=== PATIENT | female | born 1970 | race Caucasian/White ===

== ENCOUNTER 2017-11-26 20:59 | Emergency (ER) | payer MEDICARE, MEDICAID ==
[~2017-11-26] VITALS: Ht 170.2 cm; Wt 60.0 kg
[~2017-11-26 20:59] MED LIST: ARIP1TAB12 PO; ARIP400P IM; GEOD80CA PO; HYDR50TA5 PO; LAMO100 PO; LEXA20TA PO; LORA-392 PO; TRAZ100T4 PO; VIST25CA PO
[2017-11-26] MEDS ORDERED: SODIUM CHLORIDE 0.9% FLUSH 10 ML FLUSH IVF PRN (21:30)
[2017-11-26] MEDS ORDERED: LORazepam 2 MG/ML VIAL IV PUSH ONE ×2 (21:30→21:45)
[2017-11-26 21:51] VITALS: BP 116/85; PULSE 115; RESP 20; TEMP 98.6; O2SAT 97
[2017-11-26 21:57] VITALS: BP 134/66; PULSE 106; RESP 20; O2SAT 96
[2017-11-26 22:09] LABS: BASOPHIL # 0.1 TH/MM3 (0-0.2); BASOPHIL % 0.6 % (0.0-2.0); EOSINOPHIL # 0.1 TH/MM3 (0-0.4); EOSINOPHIL % 0.8 % (0.0-4.0); HEMATOCRIT 40.5 % (35.0-46.0); HEMOGLOBIN 13.6 GM/DL (11.6-15.3); LYMPH % 20.6 % (9.0-44.0); LYMPHOCYTE # 2.4 TH/MM3 (1.0-4.8); MEAN CELL VOLUME 90.8 FL (80.0-100.0); MEAN CORPUSCULAR HEMOGLOBIN 30.6 PG (27.0-34.0); MEAN CORPUSCULAR HGB CONC 33.7 % (32.0-36.0); MEAN PLATELET VOLUME 7.7 FL (7.0-11.0); MONO % 10.5 % (0.0-8.0); MONOCYTE # 1.2 TH/MM3 (0-0.9); NEUT % 67.5 % (16.0-70.0); PLATELET COUNT 365 TH/MM3 (150-450); RED BLOOD COUNT 4.46 MIL/MM3 (4.00-5.30); RED CELL DISTRIBUTION WIDTH 14.1 % (11.6-17.2); WHITE BLOOD COUNT 11.8 TH/MM3 (4.0-11.0)
--- NOTE | 2017-11-26 22:25 | PD ---
HPI Chief Complaint: Alcohol/Drug Intoxication Time Seen by Provider: 21:16 Travel History International Travel<30 days: No Contact w/Intl Traveler<30days: No Traveled to known affect area: No History of Present Illness HPI 47-year-old female history of methamphetamine use, presents here intoxicated and agitated. The patient states that she fell off the wagon a few weeks ago. She states she was clean for almost a year and 8 months. She states that she's been having acute life stressors that made her start using again. She reports smoking the meth. She states that 2-3 days ago she shot it up. He denies any chest pain, chest pressure. She states that she feels agitated and cannot sit still. There are no other complaints time my examination. PFSH Past Medical History Arthritis: Yes (HX OF OSTEOARTHRITIS) Autoimmune Disease: No Bipolar Disorder: Yes Anxiety: Yes Depression: Yes (WILL NOT DISCUSS) Cancer: No Cardiovascular Problems: No Diabetes: No Diminished Hearing: No Endocrine: No Fibromyalgia: Yes Genitourinary: No Immune Disorder: No Implanted Vascular Access Dvce: Yes Musculoskeletal: No Neurologic: No Psychiatric: Yes (WILL NOT DISCUSS) Reproductive: No Respiratory: No Schizophrenia: Yes Seizures: Yes Thyroid Disease: No Tetanus Vaccination: > 5 Years Influenza Vaccination: No ?: Not LMP: 2002 : 3 Para: 2 : 1 Past Surgical History Abdominal Surgery: No Cardiac Surgery: No Ear Surgery: No Endocrine Surgery: No Eye Surgery: No Genitourinary Surgery: No Gynecologic Surgery: Yes Hysterectomy: Yes (2002) Oral Surgery: No Thoracic Surgery: No Other Surgery: Yes (lumpectomy 2003) Social History Alcohol Use: Yes (rare) Tobacco Use: Yes (one pk per day) Substance Use: Yes (meth cocaine) Allergies-Medications (Allergen,Severity, Reaction): Coded Allergies: guaifenesin (Unverified Allergy, Severe, Anaphylaxis, 11/26/17) penicillin G (Unverified Allergy, Severe, Anaphylaxis, 11/26/17) Reported Meds & Prescriptions Reported Meds & Active Scripts Active Reported Vistaril (Hydroxyzine Pamoate) 25 Mg Cap 25 Mg PO QID Paxil (Paroxetine HCl) 30 Mg Tab 40 Mg PO DAILY Review of Systems Except as stated in HPI: all other systems reviewed are Neg General / Constitutional: No: Fever, Chills HENT: No: Headaches, Lightheadedness Cardiovascular: Positive: Palpitations, No: Chest Pain or Discomfort Respiratory: No: Cough, Shortness of Breath Gastrointestinal: No: Nausea, Vomiting, Abdominal Pain Genitourinary: No: Dysuria, Incontinence Musculoskeletal: No: Weakness, Pain Neurologic: Positive: Other (agitated), No: Weakness, Dizziness, Headache Psychiatric: Positive: Anxiety, Substance Abuse (anxious) Physical Exam Narrative GENERAL: Developed well-nourished female in no acute respiratory distress. The patient does appear to be agitated and fidgety. SKIN: Focused skin assessment warm/dry. HEAD: Atraumatic. Normocephalic. EYES: Pupils equal and dilated. No scleral icterus. No injection or drainage. ENT: No nasal bleeding or discharge. Mucous membranes pink and moist. NECK: Trachea midline. Supple. CARDIOVASCULAR: Sinus tach in the low 100s. It was 108 at the time of my examination. No murmur appreciated. RESPIRATORY: No accessory muscle use. Clear to auscultation. Breath sounds equal bilaterally. GASTROINTESTINAL: Abdomen soft, non-tender, nondistended. MUSCULOSKELETAL: No obvious deformities. No clubbing. No cyanosis. No edema. NEUROLOGICAL: Awake and alert. Patient appears under the influence of amphetamines. She is fidgety and agitated and cannot sit still. No obvious cranial nerve deficits. Motor grossly within normal limits. Normal speech. Data Data Last Documented VS Vital Signs Date Time Temp Pulse Resp B/P (MAP) Pulse Ox O2 Delivery O2 Flow Rate FiO2 11/26/17 23:39 103 20 148/74 (98) 99 Room Air 11/26/17 21:51 98.6 Orders Orders Basic Metabolic Panel (Bmp) (11/26/17 21:17) Complete Blood Count With Diff (11/26/17 21:17) Ua Includes Microscopic (11/26/17 21:17) Iv Access Insert/Monitor (11/26/17 21:17) Ecg Monitoring (11/26/17 21:17) Oximetry (11/26/17 21:17) Lorazepam Inj (Ativan Inj) (11/26/17 21:30) Sodium Chloride 0.9% Flush (Ns Flush) (11/26/17 21:30) Drug Screen, Random Urine (11/26/17 21:17) Alcohol (Ethanol) (11/26/17 21:17) Lorazepam Inj (Ativan Inj) (11/26/17 21:45) Potassium Chloride (Kcl) (11/27/17 00:00) Sodium Chlor 0.9% 1000 Ml Inj (Ns 1000 M (11/27/17 02:15) Labs Laboratory Tests Test 11/26/17 21:25 White Blood Count 11.8 TH/MM3 Red Blood Count 4.46 MIL/MM3 Hemoglobin 13.6 GM/DL Hematocrit 40.5 % Mean Corpuscular Volume 90.8 FL Mean Corpuscular Hemoglobin 30.6 PG Mean Corpuscular Hemoglobin Concent 33.7 % Red Cell Distribution Width 14.1 % Platelet Count 365 TH/MM3 Mean Platelet Volume 7.7 FL Neutrophils (%) (Auto) 67.5 % Lymphocytes (%) (Auto) 20.6 % Monocytes (%) (Auto) 10.5 % Eosinophils (%) (Auto) 0.8 % Basophils (%) (Auto) 0.6 % Neutrophils # (Auto) 8.0 TH/MM3 Lymphocytes # (Auto) 2.4 TH/MM3 Monocytes # (Auto) 1.2 TH/MM3 Eosinophils # (Auto) 0.1 TH/MM3 Basophils # (Auto) 0.1 TH/MM3 CBC Comment DIFF FINAL Differential Comment Blood Urea Nitrogen 16 MG/DL Creatinine 1.24 MG/DL Random Glucose 90 MG/DL Calcium Level 8.8 MG/DL Sodium Level 138 MEQ/L Potassium Level 3.4 MEQ/L Chloride Level 104 MEQ/L Carbon Dioxide Level 22.3 MEQ/L Anion Gap 12 MEQ/L Estimat Glomerular Filtration Rate 47 ML/MIN Ethyl Alcohol Level LESS THAN 3 MG/DL MDM Medical Decision Making Medical Screen Exam Complete: Yes Emergency Medical Condition: Yes Differential Diagnosis Polysubstance abuse versus metabolic derangement versus behavioral disorder Narrative Course 47-year-old with a history of polysubstance abuse, presents today after stating that she was using meth amphetamines. Patient states her last 2 days she smoked meth amphetamines. Patient denies any head pain and neck pain. Patient states that she's anxious and jittery. Labs show a slightly low potassium level. She's been given potassium replacement by mouth. She's also appears to have mild dehydration. She was given 1 L of IV fluids. She's been observed here and will be observed until she is awake and not anxious. Diagnosis Primary Impression: Polysubstance abuse Additional Impression: Schizoaffective disorder Disposition: 01 DISCHARGE HOME Condition: Stable Thom Adrian MD Nov 26, 2017 22:25
[2017-11-26 22:26] LABS: BICARBONATE 22.3 MEQ/L (21.0-32.0); BLOOD UREA NITROGEN 16 MG/DL (7-18); CALCIUM 8.8 MG/DL (8.5-10.1); CHLORIDE 104 MEQ/L (98-107); CREATININE 1.24 MG/DL (0.50-1.00); GLOMERULAR FILTRATION RATE 47 ML/MIN (>89); GLUCOSE,RANDOM 90 MG/DL (74-106); SODIUM (NA) 138 MEQ/L (136-145)
[2017-11-26 23:39] VITALS: BP 148/74; PULSE 103; RESP 20; O2SAT 99
[2017-11-27] MEDS ORDERED: POTASSIUM CHLORIDE 20 MEQ CONTROLLED RELEASE TAB PO ONE
[2017-11-27] MEDS ORDERED: VIST25CA PO (00:36)
[2017-11-27] MEDS ORDERED: PAXI30TA7 PO (00:36)
[2017-11-27] MEDS ORDERED: SODIUM CHLOR 0.9% 1000 ML INJ 1,000 ML IV ONE (02:15)
[2017-11-27 06:52] VITALS: BP 126/74; PULSE 94; RESP 20; O2SAT 100
== END 2017-11-27 11:52 | disposition home or self-care (01) ==
LOC: NEPE 20:59 → NEDAMB 11-27 11:52
DX: F19.10 Other psychoactive substance abuse, uncomplicated (principal); F25.9 Schizoaffective disorder, unspecified; F31.9 Bipolar disorder, unspecified; F41.9 Anxiety disorder, unspecified; M19.90 Unspecified osteoarthritis, unspecified site; M79.7 Fibromyalgia
CPT/HCPCS: 80048; 80307; 85025; 96374; 96375; 99283; J2060; J7030

== ENCOUNTER 2018-06-13 09:28 | Observation (INO) ==
[2018-06-13] MEDS ORDERED: Aspirin 325 MG Tablet PO ONE (09:48)
--- NOTE | 2018-06-13 09:52 | ED ---
HPI General Chief Complaint: Chest Pain Stated Complaint: chest pain/sob Time Seen by Provider: 06/13/18 09:41 History of Present Illness HPI narrative: Patient presents to the emergency department complaining of shortness of breath and heart pain. States she had the same symptoms about a month ago. 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 Pain is described as being left-sided, constant, initially eased but comes back, 8 out of 10, radiates to the right side, no alleviating or aggravating factors. She denies fever, sweating, nausea, vomiting, recent travel, cough, but reports shortness of breath with the pain.Patient presents to the emergency department secondary to falling this morning. States that she got up and went to the kitchen to eat breakfast pulled a chair out and try to sit down and fell because the chair slid out from underneath her. States that she did hit her head but denies loss of consciousness. He also denies being on any type of blood thinners. Denies pain now but states that she fell on her right side. She denies chest pain, abdominal pain, headache, but reports difficulty breathing with the chest pain. Complete Quality Measures for STEMI Alert Patients Related Data Allergies Allergy/AdvReac Type Severity Reaction Status Date / Time guaifenesin Allergy Severe Anaphylaxis Unverified 05/21/18 05:31 penicillin G Allergy Severe Anaphylaxis Unverified 05/21/18 05:31 Review of Systems ROS Unobtainable All other systems reviewed negative except as stated in HPI [facility] Social History Social History Recent Travel in [facility] within the Last 8 Weeks: No Recent Out of Country Travel within the Last 8 Weeks: No Exam Narrative Exam Narrative: GENERAL: No acute distress SKIN: Focused skin assessment warm/dry. HEAD: Atraumatic. Normocephalic. EYES: Pupils equal and round. No scleral icterus. No injection or drainage. ENT: No nasal bleeding or discharge. Mucous membranes pink and moist. NECK: Trachea midline. No JVD. CARDIOVASCULAR: Regular rate and rhythm. No murmur appreciated. RESPIRATORY: No accessory muscle use. Clear to auscultation. Breath sounds equal bilaterally. GASTROINTESTINAL: Abdomen soft, non-tender, nondistended. Hepatic and splenic margins not palpable. MUSCULOSKELETAL: No obvious deformities. No clubbing. No cyanosis. No edema. NEUROLOGICAL: Awake and alert. No obvious cranial nerve deficits. Motor grossly within normal limits. Normal speech. PSYCHIATRIC: Appropriate mood and affect; insight and judgment normal. Course Initial Documented Vital Signs Temperature 98.4 F 06/13/18 09:31 Pulse Rate 66 06/13/18 09:31 Respiratory Rate 20 06/13/18 09:31 Blood Pressure 137/81 06/13/18 09:31 Pulse Oximetry 99 06/13/18 09:31 Last Documented Vital Signs Temperature 98.4 F 06/13/18 09:31 Pulse Rate 66 06/13/18 09:31 Respiratory Rate 20 06/13/18 09:31 Blood Pressure 137/81 06/13/18 09:31 Pulse Oximetry 99 06/13/18 09:31 Medical Decision Making MDM Narrative Medical decision making narrative: Patient presents to the emergency department complaining of chest pain shortness of breath. Patient placed on a bus driver/monitor, continuous pulse ox, and IV access obtained. Labs, EKG, chest x-ray, aspirin 325 mg p.o., and 1, 0.4 mg sublingual nitroglycerin ordered. CXR: CONCLUSION: No acute cardiopulmonary disease. CBC and coags and d-dimer within normal limits.Troponin negative. Patient will be sent to chest pain center for further evaluation and management. Patient given 2mg IV morphine for pain. Differential Diagnosis Differential Diagnosis: ACS, fibromyalgia, costochondritis, PE Lab Data Result diagrams: 06/13/18 10:13 06/13/18 10:13 Lab Results 06/13/18 06/13/18 06/13/18 Range/Units 10:13 10:13 10:13 WBC 7.3 (4.0-11.0) th/mm3 RBC 3.83 L (4.00-5.30) mil/mm3 Hgb 12.7 (11.6-15.3) gm/dL Hct 36.0 (35.0-46.0) % MCV 93.8 (80.0-100.0) fL MCH 33.2 (27.0-34.0) pg MCHC 35.4 (32.0-36.0) % RDW 14.2 (11.6-17.2) % Plt Count 288 (150-450) th/mm3 MPV 8.1 (7.0-11.0) fL Neut % (Auto) 55.2 (16.0-70.0) % Lymph % (Auto) 31.7 (9.0-44.0) % Hardin % (Auto) 9.0 H (0.0-8.0) % Eos % (Auto) 3.4 (0.0-4.0) % Baso % (Auto) 0.7 (0.0-2.0) % Neut # (Auto) 4.0 (1.8-7.7) th/mm3 Lymph # (Auto) 2.3 (1.0-4.8) th/mm3 Hardin # (Auto) 0.7 (0.0-0.9) th/mm3 Eos # (Auto) 0.2 (0.0-0.4) th/mm3 Baso # (Auto) 0.1 (0.0-0.2) th/mm3 WBC Differential . Differential Comment Auto diff final PT 10.1 (9.8-11.6) sec INR 1.0 Ratio APTT 25.9 (24.3-30.1) sec D-Dimer Quant (PE/DVT) 0.26 (0.00-0.50) mg/L FEU Sodium 140 (136-145) meq/L Potassium 4.2 (3.5-5.1) meq/L Chloride 105 (98-107) meq/L Carbon Dioxide 28.7 (21.0-32.0) meq/L Anion Gap 6 (5-15) meq/L BUN 16 (7-18) mg/dL Creatinine 0.82 (0.50-1.00) mg/dL Estimated GFR 75 L (>89) mL/min Random Glucose 83 (74-106) mg/dL Calcium 8.7 (8.5-10.1) mg/dL Magnesium 2.0 (1.5-2.5) mg/dL Total Bilirubin 0.2 (0.2-1.0) mg/dL AST 10 L (15-37) U/L ALT 16 (10-53) U/L Alkaline Phosphatase 47 (45-117) U/L Total Creatine Kinase 91 (26-192) U/L Troponin I Less than 0.02 L (0.02-0.05) ng/mL B-Natriuretic Peptide (0-100) pg/mL Total Protein 6.4 (6.4-8.2) g/dL Albumin 3.2 L (3.4-5.0) g/dL 06/13/18 Range/Units 10:13 WBC (4.0-11.0) th/mm3 RBC (4.00-5.30) mil/mm3 Hgb (11.6-15.3) gm/dL Hct (35.0-46.0) % MCV (80.0-100.0) fL MCH (27.0-34.0) pg MCHC (32.0-36.0) % RDW (11.6-17.2) % Plt Count (150-450) th/mm3 MPV (7.0-11.0) fL Neut % (Auto) (16.0-70.0) % Lymph % (Auto) (9.0-44.0) % Hardin % (Auto) (0.0-8.0) % Eos % (Auto) (0.0-4.0) % Baso % (Auto) (0.0-2.0) % Neut # (Auto) (1.8-7.7) th/mm3 Lymph # (Auto) (1.0-4.8) th/mm3 Hardin # (Auto) (0.0-0.9) th/mm3 Eos # (Auto) (0.0-0.4) th/mm3 Baso # (Auto) (0.0-0.2) th/mm3 WBC Differential Differential Comment PT (9.8-11.6) sec INR Ratio APTT (24.3-30.1) sec D-Dimer Quant (PE/DVT) (0.00-0.50) mg/L FEU Sodium (136-145) meq/L Potassium (3.5-5.1) meq/L Chloride (98-107) meq/L Carbon Dioxide (21.0-32.0) meq/L Anion Gap (5-15) meq/L BUN (7-18) mg/dL Creatinine (0.50-1.00) mg/dL Estimated GFR (>89) mL/min Random Glucose (74-106) mg/dL Calcium (8.5-10.1) mg/dL Magnesium (1.5-2.5) mg/dL Total Bilirubin (0.2-1.0) mg/dL AST (15-37) U/L ALT (10-53) U/L Alkaline Phosphatase (45-117) U/L Total Creatine Kinase (26-192) U/L Troponin I (0.02-0.05) ng/mL B-Natriuretic Peptide 27 (0-100) pg/mL Total Protein (6.4-8.2) g/dL Albumin (3.4-5.0) g/dL Imaging Data Radiologist's impression: Chest X-Ray 06/13/18 09:48 CONCLUSION: No acute cardiopulmonary disease ECG Data Attestation: I personally reviewed and interpreted this ECG as follows: Discharge Plan Discharge Disposition Patient Disposition: 30 Still Patient Discharge Condition Condition: Stable Discharge Details Diagnosis: Chest pain Physicians Team ED Provider: Olga Lua Primary Care Provider: Gabby Issa Attending Provider: Chintan Nuñez ED Status: Admitted Observation Patient
--- NOTE | 2018-06-13 10:19 | XR ---
EXAM DATE: 06/13/2018 10:06 AM EDT AGE/SEX: 48 years / Female INDICATIONS: Chest pain. CLINICAL DATA: This is the patient's initial encounter. Patient reports that signs and symptoms have been present for 1 day and indicates a pain score of 3/10. MEDICAL/SURGICAL HISTORY: None. Patient is a smoker, one pack per day. No prior surgery. Was h ere last month for same chest pain and SOB None. COMPARISON: No prior exams available for comparison. FINDINGS: A single AP view of the chest demonstrates the lungs to be symmetrically aerated without evidence of mass, infiltrate or effusion. The cardiomediastinal contours are unremarkable. Osseous structures a re intact. CONCLUSION: No acute cardiopulmonary disease Electronically signed by: Antonio Turpin MD 06/13/2018 10:18 AM EDT
[2018-06-13 10:29] LABS: Baso # (Auto) 0.1 th/mm3 (0.0-0.2); Baso % (Auto) 0.7 % (0.0-2.0); Eos # (Auto) 0.2 th/mm3 (0.0-0.4); Eos % (Auto) 3.4 % (0.0-4.0); Hemoglobin 12.7 gm/dL (11.6-15.3); Lymph # (Auto) 2.3 th/mm3 (1.0-4.8); Lymph % (Auto) 31.7 % (9.0-44.0); Mean Corpuscular HGB Conc 35.4 % (32.0-36.0); Mean Corpuscular Hemoglobin 33.2 pg (27.0-34.0); Mean Corpuscular Volume 93.8 fL (80.0-100.0); Mean Platelet Volume 8.1 fL (7.0-11.0); Mono # (Auto) 0.7 th/mm3 (0.0-0.9); Neut % (Auto) 55.2 % (16.0-70.0); Platelet Count 288 th/mm3 (150-450); Red Blood Count 3.83 mil/mm3 (4.00-5.30); Red Cell Distribution Width 14.2 % (11.6-17.2); White Blood Count 7.3 th/mm3 (4.0-11.0)
[2018-06-13 10:41] LABS: Activated Partial Thrombo Time 25.9 sec (24.3-30.1); Prothrombin Time 10.1 sec (9.8-11.6)
[2018-06-13 10:44] LABS: D-Dimer 0.26 mg/L FEU (0.00-0.50)
[2018-06-13 10:57] LABS: Alanine Aminotransferase 16 U/L (10-53); Albumin 3.2 g/dL (3.4-5.0); Anion Gap 6 meq/L (5-15); Aspartate Aminotransferase 10 U/L (15-37); Blood Urea Nitrogen 16 mg/dL (7-18); Calcium 8.7 mg/dL (8.5-10.1); Carbon Dioxide 28.7 meq/L (21.0-32.0); Chloride 105 meq/L (98-107); Glomerular Filtration Rate 75 mL/min (>89); Glucose,Random 83 mg/dL (74-106); Potassium 4.2 meq/L (3.5-5.1); Sodium 140 meq/L (136-145)
[2018-06-13 11:01] LABS: Alkaline Phosphatase 47 U/L (45-117); Total Protein 6.4 g/dL (6.4-8.2)
[2018-06-13 11:06] LABS: Creatine Kinase 91 U/L (26-192)
[2018-06-13] MEDS ORDERED: Iohexol 350 MG/ML 50 ML Vial (for Cath Lab) IVCONTRAST ONE (11:11)
[2018-06-13] MEDS ORDERED: Morphine Sulfate Inj 2 MG/ML Vial IV.PUSH ONE (11:16)
[2018-06-13] MEDS ORDERED: Ketorolac Inj 30 MG/ML (IVP) Vial IV.PUSH ONE (11:40)
--- NOTE | 2018-06-13 12:43 | P.HPCA ---
History of Present Illness Primary Care Physician: Gabby Issa Chief Complaint: Chest pain History of Present Illness: This is a 48-year-old female with history of tobacco abuse, fibromyalgia, bipolar disorder, and schizoaffective disorder that presents to ED via private vehicle with her mother with a complaint of developing a chest discomfort and shortness of breath that began about 830 this morning while she was at work. She states the discomfort is in left upper chest. It is a burning achy discomfort. Worse level is 8 out of 10. The discomfort is still there. States it waxes and wanes. Found that taking a deep breath intensifies discomfort. Found nothing in particular to help the discomfort. Denies prior history of CAD. Cannot recall ever having a stress test or heart catheterization. Smokes about 1 pack of cigarettes a day for 30 years. Has an average 1 alcoholic beverage every couple weeks. States she has had no illicit drugs in several months. Denies family history of CAD. She has had a hysterectomy. - Diagnosis (1) Chest pain (2) Tobacco abuse Review of Systems General: Patient denies fevers, chills, and recent travel. HEENT: Patient denies headache, sore throat, difficulty swallowing. Cardiovascular: Has the chest discomfort as mentioned above. Denies sensation of heart beating rapidly or irregularly. No syncope. Denies diaphoresis. Respiratory: She was short of breath. Denies inspirational chest discomfort. Denies coughing wheezing or hemoptysis. GI: Patient denies nausea, vomiting, diarrhea, abdominal pain, bloody stools. Musculoskeletal: Patient denies joint pain or edema. Denies calf pain or edema. Neurovascular: Patient denies numbness, tingling, weakness in extremities. Denies headache. Endocrine: Denies polyuria and polydipsia. Hematologic: Denies easy bruising. Skin: Denies rash or itching. PMFSH - History History Provided By: Patient - Medical History Medical History: Medical History (Last Updated 06/13/18 @ 11:41 by Shaan Cano) Schizophrenia - Tobacco History Second Hand Smoke Exposure: Yes Tobacco Use In Past 30 Days: Yes Smoking Status: Heavy tobacco smoker Tobacco Type: Cigarettes - Alcohol History How Often Do You Have a Drink Containing Alcohol: 2 to 4 times a month - Substance Use History Substance History: Past History - Substance Use Type Methamphetamine Status: Early Remission Route Used: Inhalation Last Used: Alot, last used 7 months ago Reason for Use: Feels Good - Travel History Recent Travel in the [place] Within the Last 8 Weeks: No Recent Travel Out of the Country Within the Last 8 Weeks: No - Immunization History Tetanus Immunization: Unsure Hx Influenza Vaccine This Season: No Medications and Allergies Active Medications: Active Medications Aspirin (Aspirin) 325 mg PO DAILY DEMIAN Ondansetron HCl (Zofran Odt) 4 mg PO Q6H PRN PRN Reason: NAUSEA Sodium Chloride (Ns Flush) 2 ml IV.FLUSH UNSCH PRN PRN Reason: FLUSH AFTER USING IV ACCESS Sodium Chloride (Ns Flush) 2 ml IV.FLUSH BID DEMIAN Sodium Chloride (Ns Flush) 2 ml IV.FLUSH PRN PRN PRN Reason: FLUSH AFTER USING IV ACCESS Allergies Allergy/AdvReac Type Severity Reaction Status Date / Time guaifenesin Allergy Severe Anaphylaxis Unverified 05/21/18 05:31 penicillin G Allergy Severe Anaphylaxis Unverified 05/21/18 05:31 Home Medications Medication Instructions Recorded Confirmed Type aripiprazole [Abilify] 5 mg PO DAILY 06/13/18 06/13/18 History divalproex [Depakote] 250 mg PO BID 06/13/18 06/13/18 History gabapentin 300 mg PO DAILY 06/13/18 06/13/18 History lamotrigine [Lamictal] 25 mg PO DAILY 06/13/18 06/13/18 History trazodone 50 mg PO DAILY 06/13/18 06/13/18 History Exam Vital signs: Vital Signs 06/13/18 09:31 06/13/18 09:34 06/13/18 12:07 Temperature 98.4 F 98.2 F Pulse Rate 66 53 L 52 L Respiratory Rate 18 18 Blood Pressure 137/81 148/77 H 148/77 H Pulse Oximetry 99 98 97 Intake & Output 06/12/18 06/13/18 06/13/18 18:59 06:59 18:59 Weight 88.451 kg Narrative: GENERAL: This is a well-nourished, well-developed patient, in no apparent distress. Patient speaks in clear complete sentences. Patient is pleasant. HEENT: Head is atraumatic and normocephalic. Neck is supple without lymphadenopathy and trachea is midline. No JVD or carotid bruits. CARDIOVASCULAR: Regular rate and rhythm without murmurs, gallops, or rubs. RESPIRATORY: Clear to auscultation. Breath sounds equal bilaterally. No wheezes , rales, or rhonchi. Chest wall is tender worsening the discomfort that she has had. No use of accessory muscles. GASTROINTESTINAL: Abdomen is nontender, nondistended. Abdomen soft. No obvious pulsatile mass or bruit. No CVA tenderness. Strong femoral pulses bilaterally. Normal bowel sounds in all quadrants. MUSCULOSKELETAL: Patient is moving upper and lower extremities freely. No calf tenderness or edema, no Homans sign. Strong pulses in upper and lower extremities. NEUROLOGICAL: Patient is alert and oriented. Cranial nerves 2-12 are grossly intact. No focal deficits and speech is clear. SKIN: No rash and turgor is normal. Results 06/13/18 10:13 06/13/18 10:13 Cardiac Enzymes 06/13/18 06/13/18 Range/Units 10:13 10:13 AST 10 L (15-37) U/L Troponin I Less than 0.02 L (0.02-0.05) ng/mL B-Natriuretic Peptide 27 (0-100) pg/mL Coagulation 06/13/18 06/13/18 Range/Units 10:13 10:13 PT 10.1 (9.8-11.6) sec APTT 25.9 (24.3-30.1) sec B-Natriuretic Peptide 27 (0-100) pg/mL CBC 06/13/18 Range/Units 10:13 WBC 7.3 (4.0-11.0) th/mm3 RBC 3.83 L (4.00-5.30) mil/mm3 Hgb 12.7 (11.6-15.3) gm/dL Hct 36.0 (35.0-46.0) % Plt Count 288 (150-450) th/mm3 Neut # (Auto) 4.0 (1.8-7.7) th/mm3 Lymph # (Auto) 2.3 (1.0-4.8) th/mm3 Sibley # (Auto) 0.7 (0.0-0.9) th/mm3 Eos # (Auto) 0.2 (0.0-0.4) th/mm3 Baso # (Auto) 0.1 (0.0-0.2) th/mm3 Comprehensive Metabolic Panel 06/13/18 Range/Units 10:13 Sodium 140 (136-145) meq/L Potassium 4.2 (3.5-5.1) meq/L Chloride 105 (98-107) meq/L Carbon Dioxide 28.7 (21.0-32.0) meq/L BUN 16 (7-18) mg/dL Creatinine 0.82 (0.50-1.00) mg/dL Calcium 8.7 (8.5-10.1) mg/dL AST 10 L (15-37) U/L ALT 16 (10-53) U/L Alkaline Phosphatase 47 (45-117) U/L Total Protein 6.4 (6.4-8.2) g/dL Albumin 3.2 L (3.4-5.0) g/dL Intake and Output 06/12/18 06/13/18 06/13/18 22:59 06:59 14:59 Other: Weight 88.451 kg Patient Weight 06/14/18 06:59 Weight 88.451 kg EKG interpretations - EKG EKG shows: sinus rhythm (Initial EKG is sinus rhythm without significant ST segment depressions or elevations.) Caprini VTE Risk Assessment Caprini VTE Risk Assessment: No/Low Risk (score <= 1) Caprini Risk Assessment Model: Point Value = 1 Point Value = 2 Point Value = 3 Point Value = 5 Age 41-60 Minor surgery BMI > 25 kg/m2 Swollen legs Varicose veins or History of unexplained or recurrent spontaneous Oral contraceptives or hormone replacement Sepsis (< 1 month) Serious lung disease, including pneumonia (< 1 month) Abnormal pulmonary function Acute myocardial infarction Congestive heart failure (< 1 month) History of inflammatory bowel disease Medical patient at bed rest Age 61-74 Arthroscopic surgery Major open surgery (> 45 min) Laparoscopic surgery (> 45 min) Malignancy Confined to bed (> 72 hours) Immobilizing plaster cast Central venous access Age >= 75 History of VTE Family history of VTE Factor V Leiden Prothrombin [id number] Lupus anticoagulant Anticardiolipin antibodies Elevated serum homocysteine Heparin-induced thrombocytopenia Other congenital or acquired thrombophilia Stroke (< 1 month) Elective arthroplasty Hip, pelvis, or leg fracture Acute spinal cord injury (< 1 month) Prophylaxis Regimen: Total Risk Factor Score Risk Level Prophylaxis Regimen 0-1 Low Early ambulation 2 Moderate Order ONE of the following: *Sequential Compression Device (SCD) *Heparin 5000 units SQ BID 3-4 Higher Order ONE of the following medications: *Heparin 5000 units SQ TID *Enoxaparin/Lovenox 40 mg SQ daily (WT < 150 kg, CrCl > 30 mL/min) *Enoxaparin/Lovenox 30 mg SQ daily (WT < 150 kg, CrCl > 10-29 mL/min) *Enoxaparin/Lovenox 30 mg SQ BID (WT < 150 kg, CrCl > 30 mL/min) AND/OR *Sequential Compression Device (SCD) 5 or more Highest Order ONE of the following medications: *Heparin 5000 units SQ TID (Preferred with Epidurals) *Enoxaparin/Lovenox 40 mg SQ daily (WT < 150 kg, CrCl > 30 mL/min) *Enoxaparin/Lovenox 30 mg SQ daily (WT < 150 kg, CrCl > 10-29 mL/min) *Enoxaparin/Lovenox 30 mg SQ BID (WT < 150 kg, CrCl > 30 mL/min) AND *Sequential Compression Device (SCD) Assessment and Plan - Assessment (1) Chest pain Code(s): R07.9 - Chest pain, unspecified Status: Acute (2) Tobacco abuse Code(s): Z72.0 - Tobacco use Status: Acute - Plan * Chest pain: Patient will continue to have serial cardiac enzymes and EKGs for ruling out purposes. Further plan to be determined after Dr. Nuñez evaluates the patient. Patient will need follow-up with PCP. Should return to ED for interval issues. * Tobacco abuse: Patient counseled on importance of smoking cessation. (1) Chest pain Qualifiers: Chest pain type: unspecified Qualified Code(s): R07.9 - Chest pain, unspecified
[2018-06-13 14:28] LABS: Creatine Kinase 89 U/L (26-192)
[2018-06-13] MEDS ORDERED: Famotidine 20 MG Tablet PO ONE (14:29)
--- NOTE | 2018-06-13 14:46 | ECG ---
Date Performed: 06/13/2018 Time Performed: 09:52:58 PTAGE: 48 years EKG: normal ECG. INTERPRETATION BASED ON A DEFAULT AGE OF 42 YEARS NO PREVIOUS TRACING DOCTOR: Chintan Nuñez Interpretating Date/Time 06/13/2018 14:45:00
--- NOTE | 2018-06-13 14:48 | ECG ---
Date Performed: 06/13/2018 Time Performed: 13:38:10 PTAGE: 48 years EKG: Sinus rhythm NORMAL ECG PREVIOUS TRACING : 06/13/2018 09.52 Since previous tracing, no significant change noted DOCTOR: Chintan Nuñez Interpretating Date/Time 06/13/2018 14:48:02
[2018-06-13 16:26] LABS: Creatine Kinase 77 U/L (26-192)
[2018-06-13] MEDS ORDERED: Acetaminophen 325 MG Tablet PO PRN (20:21)
[2018-06-13] MEDS ORDERED: Aluminum/Magnesium/Simethacone Susp 30 ML UDC PO PRN (20:22)
[2018-06-13] MEDS: Divalproex 250 MG DR Tablet PO SCH (20:32)
[2018-06-13] MEDS: Famotidine 20 MG Tablet PO SCH (20:32)
[2018-06-14] MEDS: Gabapentin 300 MG Capsule PO SCH (08:50)
[2018-06-14] MEDS: traZODone 50 MG Tablet PO SCH (08:51)
[2018-06-14] MEDS: Aspirin 325 MG Tablet PO SCH (08:51)
[2018-06-14] MEDS: ARIPiprazole 5 MG Tablet PO SCH (08:51)
[2018-06-14] MEDS: Famotidine 20 MG Tablet PO SCH ×2 (08:51→20:10)
[2018-06-14] MEDS: Divalproex 250 MG DR Tablet PO SCH ×2 (08:51→20:10)
[2018-06-14] MEDS ORDERED: Regadenoson Inj 0.4 MG/5 ML Syringe IV.PUSH ONE (09:11)
[2018-06-14] MEDS: lamoTRIgine 25 MG TABLET PO SCH (10:22)
--- NOTE | 2018-06-14 10:46 | NM ---
EXAM DATE: 06/14/2018 10:31 AM EDT AGE/SEX: 48 years / Female INDICATIONS:Angina. . Left sided chest pain with shortness of breath for one day. CLINICAL DATA: This is the patient's initial encounter. Patient reports that signs and symptoms have been present for 1 day and indicates a pain score of 5/10. MEDICAL/SURGICAL HISTORY: None. Hysterectomy. COMPARISON: No prior exams available for comparison. No external comparison. DOSE: 8.7 mCi Tc 99m Myoview at rest 26.2 mCi [id number] at stress 0.4 mg Lexiscan STRESS SYMPTOMS: Short of breath and dizzy. EJECTION FRACTION: 63 % TECHNIQUE: The patient underwent pharmacologic stress with infusion of prescribed dose. Continuous ECG tracing was monitored during stress. Gated SPECT imaging was performed after stress and conventi onal SPECT imaging was performed at rest. The examination was performed on a SPECT/CT scanner, both attenuation and non-corrected datasets were reviewed. FINDINGS: Distribution: The maximum perfused segment at stress is in the anterior wall. Perfusion Study: There is a mild to moderate perfusion defect on the stress images involving the an terior wall with redistribution on the rest images. There is a summed stress score of 12. Gated Study: There are intact wall motion and wall thickening without hypokinetic or dyskinetic segm ents. The ejection fraction is calculated at 63%. RISK CATEGORY: Intermediate (1-3 % Annual Mortality Rate) CONCLUSION: 1. Normal wall motion and calculated ejection fraction. 2. Mild to moderate reversible wall defect involving the anterior wall which could indicate ischemia in the left anterior descending artery distribution. Electronically signed by: Daniel Ramírez MD 06/14/2018 10:44 AM EDT
--- NOTE | 2018-06-14 10:47 | ECG ---
Date Performed: 06/13/2018 Time Performed: 16:06:55 PTAGE: 48 years EKG: Sinus rhythm NORMAL ECG PREVIOUS TRACING : 06/13/2018 13.38 Since previous tracing, no significant change noted DOCTOR: Chintan Nuñez Interpretating Date/Time 06/14/2018 10:45:47
--- NOTE | 2018-06-14 11:39 | TR ---
Date Performed: 06/14/2018 Time Performed: 09:39:35 DOCTOR: Chintan Nuñez DRUG LIST: CLINICAL HISTORY: ANGINA REASON FOR TEST: Angina REASON FOR ENDING: OBSERVATION: CONCLUSION: COMMENTS: Lexiscan stress test was performed under standard four minute protocol. Radionuclide was injected one minute prior to ending the test. No electrocardiographic abormalities were present t o suggest ischemia. Nuclear imaging and interpretation are pending.
[2018-06-14] MEDS: Metoprolol Tartrate 25 MG Tablet PO SCH ×2 (12:07→20:10)
--- NOTE | 2018-06-14 13:35 | P.PNCA ---
Subjective Interval history: Denies chest pain. Physical Exam Vital signs: Vital Signs 06/13/18 15:57 06/13/18 16:11 06/13/18 19:19 Temperature 98.0 F 98.1 F Pulse Rate 71 71 67 Respiratory Rate 18 17 Blood Pressure 117/59 L 134/80 Pulse Oximetry 95 97 06/13/18 21:00 06/13/18 22:57 06/14/18 01:59 Temperature 98.2 F 98.2 F Pulse Rate 67 64 69 Respiratory Rate 17 17 Blood Pressure 118/57 L 107/60 Pulse Oximetry 98 97 06/14/18 03:19 06/14/18 07:29 06/14/18 08:43 Temperature 98.1 F 98 F Pulse Rate 62 67 61 Respiratory Rate 17 18 Blood Pressure 105/62 126/58 L Pulse Oximetry 97 96 06/14/18 11:41 Temperature 97.7 F Pulse Rate 69 Respiratory Rate 18 Blood Pressure 126/77 Pulse Oximetry 100 Intake & Output 06/13/18 06/14/18 06/14/18 18:59 06:59 18:59 Weight 88.451 kg Other: Date of Last Bowel Movement 06/12/18 Narrative: General: No apparent distress. Cardiovascular: Regular rate and rhythm. Respiratory: Lungs clear to auscultate. GI: Abdomen nontender. Normal bowel sounds. Assessment and Plan - Assessment (1) Chest pain Code(s): R07.9 - Chest pain, unspecified Status: Acute (2) Tobacco abuse Code(s): Z72.0 - Tobacco use Status: Acute - Plan * Chest pain: Patient will continue to have serial cardiac enzymes and EKGs for ruling out purposes. Further plan to be determined after Dr. Nuñez evaluates the patient. Patient will need follow-up with PCP. Should return to ED for interval issues. * Tobacco abuse: Patient counseled on importance of smoking cessation. Patient's Lexiscan was abnormal. Discussed with Dr. Nuñez. Patient will be admitted to [facility] with consult to cardiology construction analyst. Patient is agreeable to this plan. We will start beta-andres and apply Nitrol ointment. (1) Chest pain Qualifiers: Chest pain type: unspecified Qualified Code(s): R07.9 - Chest pain, unspecified
--- NOTE | 2018-06-14 15:50 | MB ---
cc: Marky Amado MD DATE: 06/14/2018 REASON FOR CONSULTATION: Chest pain with abnormal stress test. HISTORY OF PRESENT ILLNESS: The patient is a pleasant 48-year-old woman with history of smoking, as well as fibromyalgia, bipolar disorder, and schizoaffective disorder, who presents with chest pressure. She was admitted, ruled out for [place] and had a stress test, which was somewhat abnormal so I was consulted. The patient admits to some continuing pain for which she received oxycodone with relief. She is generally comfortable and was sleeping in bed when I came into the room. No current shortness of breath, lightheaded, or dizziness. No syncope. PAST MEDICAL HISTORY: Tobacco abuse, bipolar disorder, fibromyalgia, schizoaffective disorder. CURRENT MEDICATIONS: 1. Tylenol. 2. [place]. 3. Abilify. 4. Aspirin. 5. Depakote. 6. Pepcid. 7. Lamictal. 8. Lopressor 12.5 mg b.i.d. ALLERGIES: GUAIFENESIN AND PENICILLIN. PHYSICAL EXAMINATION: VITAL SIGNS: Afebrile, pulse 69, respiratory rate 18, blood pressure 126/77, saturating 100% on room air. GENERAL: Pleasant woman in no distress. NECK: No JVD. LUNGS: Clear to auscultation bilaterally. CARDIOVASCULAR: Regular rate and rhythm, a soft systolic flow murmur is appreciated. ABDOMEN: Benign. EXTREMITIES: No edema. LABORATORY DATA: White count 7.3, hematocrit 36, platelets 288. Sodium 140, potassium 4.2, chloride 105, bicarbonate 20.7, BUN 16, creatinine 0.82, glucose 83. Cardiac enzymes are negative x 3. EKG is sinus rhythm without any acute ST or T-wave changes. ASSESSMENT AND PLAN: Chest pain. The patient's chest pain has mixed typical and atypical features as it is a pressure-type pain, but comes and goes without any eliciting cause. She has smoking as a primary risk factor. Given her abnormal stress test (read as mild to moderate anterior ischemia in a left anterior descending distribution) a cardiac catheterization is reasonable to exclude a true coronary atherosclerosis as the etiology of her chest pain. I discussed the case with Dr. Jones, who will plan on doing the case tomorrow. She will be kept n.p.o. past midnight. Further recommendations based on the above. Thank you again for the opportunity to participate in this patient's care. MD LEONA Garcia/JERMAINE , 02:33 PM , 03:49 PM
[2018-06-15] MEDS: Divalproex 250 MG DR Tablet PO SCH ×2 (08:02→20:52)
[2018-06-15] MEDS: traZODone 50 MG Tablet PO SCH (08:02)
[2018-06-15] MEDS: Metoprolol Tartrate 25 MG Tablet PO SCH ×2 (08:03→20:50)
[2018-06-15] MEDS: lamoTRIgine 25 MG TABLET PO SCH (08:03)
[2018-06-15] MEDS: Gabapentin 300 MG Capsule PO SCH (08:04)
[2018-06-15] MEDS: Famotidine 20 MG Tablet PO SCH ×2 (08:04→22:22)
[2018-06-15] MEDS: Aspirin 325 MG Tablet PO SCH (08:04)
[2018-06-15] MEDS: ARIPiprazole 5 MG Tablet PO SCH (08:04)
--- NOTE | 2018-06-15 09:16 | P.PN ---
Subjective Interval history: Follow-up visit chest pain, positive ischemia. Patient seen and examined today. Reports she continues to have chest pain, rated 7/10, achy, nonradiating , does not know what aggravates or relieves the pain. Denies SOB/ dyspnea. Denies palpitations, headaches, dizziness. Denies fevers, chills, n/v/d. Denies dysuria. Physical Exam Vital signs: Vital Signs 06/14/18 11:41 06/14/18 15:50 06/14/18 16:00 Temperature 97.7 F 98.0 F Pulse Rate 69 68 71 Respiratory Rate 18 Blood Pressure 126/77 119/57 L Pulse Oximetry 100 97 06/14/18 19:38 06/14/18 20:00 06/14/18 23:53 Temperature 98.2 F Pulse Rate 71 66 70 Respiratory Rate 17 Blood Pressure 116/61 Pulse Oximetry 97 06/15/18 00:00 06/15/18 04:00 06/15/18 04:12 Temperature 98 F 98.4 F Pulse Rate 62 64 65 Respiratory Rate 17 17 Blood Pressure 118/69 118/56 L Pulse Oximetry 96 96 06/15/18 07:23 06/15/18 07:24 06/15/18 07:47 Temperature Pulse Rate 65 71 64 Respiratory Rate 14 Blood Pressure Pulse Oximetry 99 06/15/18 07:54 Temperature 98.0 F Pulse Rate 67 Respiratory Rate 16 Blood Pressure 124/73 Pulse Oximetry 97 Intake & Output 06/14/18 06/15/18 06/15/18 18:59 06:59 18:59 Other: # Voids 4 Date of Last Bowel Movement 06/12/18 Narrative: GENERAL: This is a well-nourished, well-developed patient, in no apparent distress. SKIN: Warm and dry HEENT: Normocephalic. Pupils equal round and reactive. Nose without bleeding. Airway patent. NECK: Trachea midline. No JVD. Supple. CARDIOVASCULAR: Regular rate and rhythm without murmurs, gallops, or rubs. RESPIRATORY: Clear to auscultation. Breath sounds equal bilaterally. No wheezes , rales, or rhonchi. GASTROINTESTINAL: Abdomen soft, non-tender, nondistended. Bowel Sounds normoactive x4. MUSCULOSKELETAL: Extremities without clubbing, cyanosis, or edema. NEUROLOGICAL: Awake and alert. Oriented to time, place, person. No focal neuro deficit. Moves all extremities. Normal speech. Results - Labs CBC & Chem 7: 06/13/18 10:13 06/13/18 10:13 - Imaging Impressions Myocardial Perfusion Scan Nuc Med 06/14/18 08:00 CONCLUSION: 1. Normal wall motion and calculated ejection fraction. 2. Mild to moderate reversible wall defect involving the anterior wall which could indicate ischemia in the left anterior descending artery distribution. Assessment and Plan - Assessment (1) Chest pain Code(s): R07.9 - Chest pain, unspecified Status: Acute (2) Tobacco abuse Code(s): Z72.0 - Tobacco use Status: Acute - Plan 48-year-old female with history of tobacco abuse, fibromyalgia, bipolar disorder , and schizoaffective disorder that presents to ED via private vehicle with her mother with a complaint of developing a chest discomfort and shortness of breath Chest pain, acute -Serial cardiac enzymes and EKGs for ruling out purposes. -Myocardial perfusion scan showed normal wall motion and calculated ejection fraction at 63%. Mild to moderate reversible wall defect involving the anterior wall which could indicate ischemia in the left anterior descending artery distribution. -Cardiology consulted. Plan for cardiac cath today. Tobacco abuse -Patient counseled on importance of smoking cessation. Depression -Continue home medication DVT Prop SCDs Code Status: Full Code Discussed Condition With: Patient, nursing Discharge Planning: DC when cleared by cardiology (1) Chest pain Qualifiers: Chest pain type: unspecified Qualified Code(s): R07.9 - Chest pain, unspecified
[2018-06-15] MEDS ORDERED: Heparin/NS PF Inj 1,500 ML ONE (13:22)
[2018-06-15] MEDS ORDERED: fentaNYL Citrate Inj 100 MCG/2 ML Ampul ONE (13:23)
[2018-06-15] MEDS ORDERED: Heparin 10,000 UNITS/10 ML Vial (for IV use) ONE (13:23)
--- NOTE | 2018-06-15 14:31 | CATHPROC ---
[facility] HIS Report Study Information Study Number Admission Scheduled Start Study Start [id number] Jun 13 2018 11:10AM 06/15/2018 Jun 15 2018 1:14PM [place] Service Cardiac Catheterization Admit Source Facility Department Other [facility] - Surgery Aid Physician and Clinical Staff Initial Micah Luis Human Resources Services Specialist Alexander Carlisle,FIOR Other cathlab, cathlab Recorder Jessica Lyons,AUTOMATIC PRESSER TECH2 Recorder Kylie Henry BSN Scrub Raven Jacobson,RT(R) Procedures Performed Procedure Location (Site) Vessel Name Coronary Angiograms LCA Left Coronary Coronary Angiograms RCA Right Coronary L Heart Cath Equipment Time Software Design Analyst Description Size Mfg Part Number Used/Scraped TRANSDUCER, TRUWAVE [id number] 13:21 WAY TESFAYE * Used W/STOCKCOCK *[id number] INTRODUCER SET, 13:50 [employer] FR 5 [id number] *[id number] Used MICROPUNCTURE STIFF [id number] *[id number] [id number] *[id number] 13:21 Knovel BLANKET,WARM AIR CCL * Used *[id number] 13:21 [employer]vel PACK, CCL CUSTOM * Used *[id number] 13:21 Knovel SUPPORT, ARTERIAL ADULT 86807 *[id number] Used BAND, RADIAL COMPRESSION TR [id number] 14:05 [employer]One MEDICAL 24CM Used SHORT 24 *[id number] 13:21 [employer]brain WIRE, EXCHANGE 260CM 3MMJ 260CM Used *[id number] 13:21 NAMIC MANIFOLD, 4 PORT * Used *[id number] 13:21 NYCOMED OMNIPAQUE, 350 MG, 150ML 150ML [id number] Used [id number] 13:50 TERUMAXS-One MEDICAL SHEATH, FR5 TERUMO (10CM) FR 5 Used *[id number] SHEATH, FR6 TRANSRADIAL [id number] 13:21 TERUMO MEDICAL FR 6 Used SLENDER 10CM *[id number] Equipment Model, Serial, Lot Number and Expiration Data Description Model Number Serial Number Lot Number Expiration Date INTRODUCER SET, [id number] 04-27-2021 MICROPUNCTURE STIFF History: Current Medications Medication Dosage/Unit Route Frequency Last Date/Time Taken Neurontin History: Allergies Allergy Reaction guaifenesin Anaphylaxis penicillin G Anaphylaxis History: Risk Factors Family History of Hypertension Dyslipidemia Previous DE Previous Heart Failure Premature CAD No No No No No Prior Valve Prior PCI Prior CABG Surgery No No No Cerebrovascular Peripheral Artery Chronic Lung On Dialysis Diabetes Disease Disease Disease No No No No No History: Stress Tests Stress or Imaging Studies Performed Yes Standard Exercise Stress Test No Stress Echo No Stress Test SPECT No Stress Test CMR Stress Test CMR Result Stress Test CMR Ischemia Risk/Extent Yes Positive Intermediate Cardiac CTA Coronary Calcium Score No No History: Other Current Smoker Method Packs a Day Years Used Pack Years Yes Cigarettes 1 30 30 Labs Hgb (g/dl) Hct (%) WBC (l/cumm) Platelets (thousands) 11.60-17.00 35.00-51.00 4.00-11.00 150.00-450.00 12.7 36 7.3 288 Glucose (mg/dl) BUN (mg/dl) Creatinine (mg/dl) BUN:Creatinine (1:x) 74.00-106.00 7.00-18.00 0.50-1.30 10.00-20.00 83 16 0.8 20 Na (meq/l) K (meq/l) 136.00-145.00 3.50-5.10 140 4.2 INR (PTT:PT) 0.90-1.10 1 Troponin I (ng/ml) CPK (u/l) CPK-MB (ng/ML) 0.02-0.05 26.00-308.00 0.50-3.60 0.02 77 Not Drawn Medication Medication Total Dose (Bolus/Oral) Medication Total Dosage/Unit 1% XYLOCAINE 25 mL FENTANYL 50 mcg RADIAL COCKTAIL 5 mL (Bolus) VERSED 1 mg Medications (Bolus/Oral) Medication Time Given Dosage/Unit Administered By Reason VERSED 06/15/2018 1:38:22 PM 0.5 mg Alexander Carlisle 0.5 mg VERSED given in lab by Alexander Carlisle RN in Right Antecubital via Peripheral IV. Ordered by Micah Sher 1% XYLOCAINE 06/15/2018 1:38:42 PM 5 mL Micah Jones 5 mL 1% XYLOCAINE given in lab by Micah Jones in Right Radial via Subcutaneous. Ordered by Micah Das FENTANYL 06/15/2018 1:39:30 PM 25 mcg Alexander Carlisle 25 mcg FENTANYL given in lab by Alexander Carlisle RN in Right Antecubital via Peripheral IV. Ordered by Micah Rehman RADIAL COCKTAIL 06/15/2018 1:40:24 PM 5 mL (Bolus) Micah Jones 5 mL (Bolus) RADIAL COCKTAIL given in lab by Micah Jones via Radial. Using [Solution Name]. O rdered by Micah Jones Reason: Ntg 200mcg Heparin 3500U. VERSED 06/15/2018 1:47:29 PM 0.5 mg Alexander Carlisle 0.5 mg VERSED given in lab by Alexander Carlisle RN in Right Antecubital via Peripheral IV. Ordered by Micah Sher FENTANYL 06/15/2018 1:48:34 PM 25 mcg Alexander Carlisle 25 mcg FENTANYL given in lab by Alexander Carlisle RN in Right Antecubital via Peripheral IV. Ordered by Micah Rehman 1% XYLOCAINE 06/15/2018 1:50:30 PM 20 mL Micah Joens 20 mL 1% XYLOCAINE given in lab by Micah Jones in Right Groin via Subcutaneous. Ordered by Micah Das Medication (Drip) Medication Time Given Dosage/Unit Concentration/Unit Diluent (ml) Solution IV Solutions 06/15/2018 1:19:43 PM 0 mL (IV) 500 NaCl .9 IV Solutions given in lab by Alexander Carlisle RN in Right Antecubital via Peripheral IV. Pump/Drip Flow = 20 ml/hr using NaCl .9. Ordered by Micah Jones Initial Case Assessment Cardiovascular NIBP 133/91 Edema Present Skin color Skin None Normal Warm Dry Circulatory - Right Pulses Dorsalis Pedis Femoral Radial 2 2 2 Scale (0,1,2,3,4,d) Circulatory - Left Pulses Dorsalis Pedis Femoral Radial 2 2 Scale (0,1,2,3,4,d) Neurological State Oriented to time-place- Alert Moves all extremities person Respiration - General Respiration Rate SpO2 (%) (B/min) 15 99 Initial Case Assessment Cardiovascular HR Rhythm NIBP 58 SB 124/77 Edema Present Skin color Skin None Normal Warm Dry Circulatory - Right Pulses Dorsalis Pedis Femoral Radial 2 2 2 Scale (0,1,2,3,4,d) Circulatory - Left Pulses Dorsalis Pedis Femoral Radial 2 2 Scale (0,1,2,3,4,d) Circulatory - Lower Extremities Color Lower Right Color Lower Left Normal Normal Neurological State Oriented to time-place- Alert Moves all extremities person Respiration - General Respiration Rate SpO2 (%) (B/min) 15 98 Chronological Log Time Study Chronological Log 13:14:10 Patient arrived via Bed. 13:14:11 Patient Name, D.O.B, / Armband Verified By R.N. 13:14:12 Consent signed by the physician and the patient and verified by the Surgery Aid staff. 13:14:15 Pre-op and post- op instructions given; patient acknowledges understanding of instructions. 13:14:47 Presedation assessment performed by Surgery Aid RN. 13:14:51 Patient has been NPO for More than 6Hrs. 13:14:53 NO Skin Breakdown- Vitals capture started with the following parameters, Patient=Adult, Interval=5 min, Initial Pr fuwwwg=118 mmHg, 13:19:13 Deflation Rate=5 mmHg, Cuff placed on Right Arm 13:19:41 Lelo Prominences Protected 13:19:42 A # 20 IV was noted in the Antecubital (right). Grade = 0 IV Solutions given in lab by Alexander Carlisle, RN in Right Antecubital via Peripheral IV. Pump/Drip Flow = 20 ml/hr using 13:19:43 NaCl .9. Ordered by Micah Jones 13:19:43 History and physical on the chart or being dictated. Assessment: Initial Case, EZQH=213/91 mmhg, Edema=None, Color=Normal, Skin = Warm, Dry Right Pulses: Jonathan Ped=2, Femoral=2, Radial=2 13:19:44 Left Pulses: Jonathan Ped=2, Femoral=2 Neurological: State=Alert, Ox3, LOCKE Respiration: Resp=15 B/min, SpO2=99 % 13:19:54 HR=56 bpm, JRFG=653/91 mmhg, SpO2=96.0 %, Resp=13 B/min, Pain=0, Lena=10, Pope=2 13:24:13 Reference ECG taken 13:24:54 Allens test performed on the right radial and ulnar artery. 13:25:34 HR=54 bpm, BMPW=504/86 mmhg, NrI3=805.0 %, Pain=0, Lena=10, Pope=2 13:26:17 Right Radial and groin(s) prepped with 2% chlorhexidine, and draped after a 3 min. waiting time. 13:29:52 HR=56 bpm, FMIR=999/84 mmhg, SpO2=99.0 %, Resp=13 B/min, Pain=0, Lena=10, Pope=2 13:32:29 Pressure channel 1 zeroed. 13:34:49 HR=61 bpm, CYZK=940/91 mmhg, SpO2=99.0 %, Resp=14 B/min, Pain=0, Lena=10, Pope=2 Time Out. Correct patient, correct procedure, correct physician, labs, allergies, and equipment verified with lab systems analyst 13:38:01 team present. Fire risk assesment completed (see hard stop sheet for coding). Time Out Conc urred by MD and individual staff in procedure. 13:38:07 Case Start 13:38:22 0.5 mg VERSED given in lab by Alexander Carlisle, RN in Right Antecubital via Peripheral IV. Orde red by Micah Jones. 5 mL 1% XYLOCAINE given in lab by Micah Jones in Right Radial via Subcutaneous. Ordered by Robert 13:38:42 Micah Schultz. 25 mcg FENTANYL given in lab by Alexander Carlisle, RN in Right Antecubital via Peripheral IV. Ordere d by Micah Jones 13:39:30 G. 13:39:52 HR=57 bpm, NVOB=300/83 mmhg, SpO2=98.0 %, Resp=16 B/min 13:39:54 Access site was Right Radial Artery . A SHEATH, FR6 TRANSRADIAL SLENDER 10CM FR 6 was advanced into the Radial (right) using the Perc utaneous 13:40:05 technique. 5 mL (Bolus) RADIAL COCKTAIL given in lab by Micah Jones via Radial. Using [Solution Na me]. Ordered by 13:40:24 Micah Jones. Reason: Ntg 200mcg Heparin 3500U. A JR 4.0 INFINITI CATHETER FR 5 was advanced over a wire. OMNIPAQUE, 350 MG, 150ML 150ML was us ed for 13:41:16 injections. Recorded Pressure: LV, HR=64, Condition=Condition 1 13:42:06 (Left Ventricle) LV 103/3/12 Recorded Pressure: LV, Ao, HR=61, Condition=Condition 1 13:42:23 (Left Ventricle) LV 104/2/14, (Aorta) Ao 107/69/86 13:42:57 The RCA was injected and visualized at various angles. OMNIPAQUE, 350 MG, 150ML 150ML used . After removing the current catheter a JL 3.5 INFINITI CATHETER FR 5 was advanced over a WIRE, E XCHANGE 260CM 13:44:21 3MMJ 260CM. 13:44:53 HR=72 bpm, OABR=818/71 mmhg, SpO2=96.0 %, Resp=16 B/min 13:47:29 0.5 mg VERSED given in lab by Alexander Carlisle RN in Right Antecubital via Peripheral IV. Orde red by Micah Jones Recorded Pressure: Ao, HR=60, Condition=Condition 1 13:48:24 (Aorta) Ao 110/73/92 25 mcg FENTANYL given in lab by Alexander Carlisle RN in Right Antecubital via Peripheral IV. Ordere d by Micah Jones 13:48:34 G. 13:49:50 HR=63 bpm, ABFZ=800/73 mmhg, SpO2=94 %, Resp=14 B/min 13:50:03 Catheter was removed 20 mL 1% XYLOCAINE given in lab by Micah Jones in Right Groin via Subcutaneous. Ordered by Robert 13:50:30 Micah Gotti 13:54:53 HR=60 bpm, IFSS=841/72 mmhg, SpO2=93.0 %, Resp=12 B/min 13:56:47 Access site was Right Femoral Artery. 13:58:01 A SHEATH, FR5 TERUMO (10CM) FR 5 was advanced into the Fem Art (right) using the Percutaneo us technique. Recorded Pressure: Ao, HR=65, Condition=Condition 1 13:58:04 (Aorta) Ao 121/65/85 13:58:18 An injection in the Fem Art (right) was made through the SHEATH, FR5 TERUMO (10CM) FR 5. 13:59:50 HR=57 bpm, HKIN=748/73 mmhg, SpO2=96 %, Resp=14 B/min A JL 3.5 INFINITI CATHETER FR 5 was advanced over a wire. OMNIPAQUE, 350 MG, 150ML 150ML was u sed for 14:00:07 injections. 14:01:36 The LCA was injected and visualized at various angles. OMNIPAQUE, 350 MG, 150ML 150ML use d. 14:04:51 HR=66 bpm, SHWX=000/74 mmhg, SpO2=94.0 %, Resp=15 B/min 14:04:51 Catheter(s) removed without difficulty Radial Compression Device Used. 10 mLs of air placed in BAND, RADIAL COMPRESSION TR SHORT 24 2 4CM. Affected 14:05:41 hand 98 % O2 saturation. 14:06:39 Case End (Physician broke scrub) 14:08:34 Sheath removed; pressure applied to access site. 14:08:48 No case complications noted. 14:08:48 Cine recording checked. 14:08:51 Bedside Report will be given. 14:08:57 A Left Heart Cath was performed. Assessment: Initial Case, HR=58 BPM, Rhythm=SB, NAZX=253/77 mmhg, Edema=None, Color=Normal, Sk in = Warm, Dry Right Pulses: Jonathan Ped=2, Femoral=2, Radial=2 Left Pulses: Jonathan Ped=2, Femoral=2 14:09:52 Lower Right Extremities: Color=Normal Lower Left Extremities: Color=Normal Neurological: State=Alert, Ox3, LOCKE Respiration: Resp=15 B/min, SpO2=98 % 14:10:25 HR=58 bpm, EAFM=126/77 mmhg, SpO2=95 %, Resp=15 B/min, Pain=0, Lena=10, Pope=2 14:14:53 HR=58 bpm, WDKQ=306/76 mmhg, SpO2=96.0 %, Resp=13 B/min, Pain=0, Lena=10, Pope=2 14:19:54 HR=60 bpm, CTNJ=672/67 mmhg, SpO2=96.0 %, Resp=14 B/min 14:24:31 Sterile dressing applied to site 14:24:53 HR=61 bpm, FHHS=535/78 mmhg, SpO2=98 %, Resp=15 B/min, Pain=0, Lena=10, Pope=2 14:27:40 Patient moved to stretcher End Study - Contrast Media Used In Study Contrast Total Opened (mL) Total Used (mL) Total Wasted (mL) Omnipaque 40 40 0 End Study - Maximum Contrast Load Max Contrast Load (mL) 553.1 End Study - Radiation Exposure Fluoro Time (minutes) 4.9 End Study - Sheaths Sheaths Pulled By Sheath Hold Time (min) Raven Jacobson 15 End Study - Patient Disposition Complications Transferred To No Surgery Aid Holding
--- NOTE | 2018-06-15 21:37 | MB ---
cc: Micah Jones DO DATE: 06/15/2018 REASON FOR CONSULTATION: Chest pain, abnormal stress test. HISTORY OF PRESENT ILLNESS: Naty Humphries is a pleasant 48-year-old female who presented to [facility] Emergency Room due to chest discomfort and shortness of breath. She states that she was at work and around 8:30, chest pain and shortness came on. Chest pain was in her left upper chest and kind of burning or achy in discomfort. She said eventually it was 8/10. Pain has kind of waxed and waned since then. It also hurts a little bit more with a deep breath. She underwent a stress test and this showed anterior ischemia and so she was recommended cardiac catheterization. In seeing her, she is currently hemodynamically stable, without chest pain or shortness of breath. PAST MEDICAL HISTORY: 1. Tobacco abuse. 2. Fibromyalgia. 3. Bipolar disorder. 4. Schizoaffective disorder. PAST SURGICAL HISTORY: Denies. ALLERGIES: 1. GUAIFENESIN. 2. PENICILLIN. MEDICATIONS: 1. Lamictal 25 mg daily. 2. Gabapentin 300 mg daily. 3. Depakote 250 mg b.i.d. 4. Abilify 5 mg daily. 5. Trazodone 50 mg daily. FAMILY HISTORY: Denies premature coronary artery disease or sudden cardiac within the family. SOCIAL HISTORY: The patient smoked about a pack of cigarettes a day. She rarely drinks. Denies any current substance abuse, although she has a history of methamphetamine use, with her last use being 7 months ago. REVIEW OF SYSTEMS: Fourteen systems were reviewed including osteopathic. Pertinent positives and negatives above, otherwise negative. PHYSICAL EXAMINATION: VITAL SIGNS: Temperature 98.0, heart rate 67, blood pressure 124/73, respirations 16, pulse oximetry 97% on room air. GENERAL: The patient appears well, in no acute distress. Alert, awake and oriented x 3. HEENT: Extraocular muscles intact. Mucous membranes moist. NECK: Supple. No JVD at 45 degrees. No carotid bruits heard bilaterally. Carotid upstroke is brisk in nature. HEART: Regular rate and rhythm. Positive first and second heart sounds, with no noted murmurs, gallops or rubs. LUNGS: Clear to auscultation bilaterally. No wheezes, rales or rhonchi. ABDOMEN: Soft, nontender, nondistended. No organomegaly noted. EXTREMITIES: Show no clubbing, cyanosis or edema. Femoral and distal pulses intact bilaterally. NEUROLOGIC: No focal deficits. SKIN: Warm, dry and intact. OSTEOPATHIC: No kyphoscoliosis, lordosis or paraspinal tender points. LABORATORY DATA: Hemoglobin is 12.7, hematocrit 36.0, platelets 288. Potassium 4.2, BUN 16, creatinine 0.82. Troponin negative x 3. Electrocardiogram (06/13/2018 at 1606), sinus rhythm. No acute ST-T wave changes. IMPRESSION: 1. Atypical chest pain. 2. Abnormal stress test (intermediate risk). 3. Tobacco abuse. 4. History of methamphetamine abuse. RECOMMENDATIONS: 1. Ms. Humphries presented with atypical chest pain and underwent stress testing. This showed anterior ischemia and was considered an intermediate risk stress test. Because of this, she will be recommended cardiac catheterization. 2. Risks, benefits and alternatives have been explained to her and she consented as such. 3. I spoke to her that for greater than 3 minutes about tobacco cessation. 4. We will check a 2D echo to look at her overall left ventricular function, cardiac structure and possible valvulopathies. 5. Further recommendations will be made after coronary visualization. Thank you for allowing me to see Naty Humphries. If there are any questions, please do not hesitate to call. DO ANDER Herring/ESPERANZA , 07:48 PM , 09:34 PM
--- NOTE | 2018-06-15 21:44 | MA ---
cc: Micah Jones DO DATE: 06/15/2018 DATE OF PROCEDURE: 06/15/2018. PROCEDURE: Left heart catheterization, coronary angiogram, moderate sedation 30 minutes. PREPROCEDURAL DIAGNOSIS: Chest pain, abnormal stress test (intermediate risk). POSTPROCEDURE DIAGNOSIS: Mild coronary artery disease. MEDICATIONS: Versed 1 mg, fentanyl 50 mcg, nitroglycerine 200 mcg, heparin 3500 units. CONTRAST USED: 40 mL FLUOROSCOPY: 4.9 minutes. MODERATE SEDATION: 30 minutes. FRAILTY SCORE: 3. ESTIMATED BLOOD LOSS: 10 mL PROCEDURAL SUMMARY: Naty Humphries is a pleasant 48-year-old female who presented to [facility] Emergency Room due to atypical chest pain. She underwent stress testing and was found to have possible anterior ischemia and recommended cardiac catheterization as this was an intermediate risk stress test. Risks, benefits and alternatives were explained to her and she consented as such. She was brought to the lab and prepped in the usual sterile fashion. The right radial artery was accessed using a modified Seldinger technique and placement of a 5/6 Moroccan slender sheath. This is easily aspirated and flushed. A JR4 was advanced over a J-wire to the ascending aorta and across the aortic valve for measurement of left ventricular pressure. This was pulled back across the aortic valve, showing no significant gradient of aortic stenosis. JR4 was used for selective angiography of the right coronary artery system. This was exchanged out for a JL3.5, but during this, she had significant spasm and I was unable to engage the left coronary artery and so JL3.5 was removed. Right femoral artery was accessed using a modified Seldinger technique and placement of a 5-Moroccan sheath. This was easily aspirated and flushed. A JL 3.5 was used for selective angiography of the left coronary artery system. This was removed. Sheath was removed and pressure held for hemostasis. 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 FINDINGS: LEFT MAIN: Normal-sized vessel with adequate reflux. It bifurcates into an LAD and circumflex. LEFT ANTERIOR DESCENDING: Moderate to large size vessel, with 10-20% disease in the proximal to mid portion. Distally, it gives off 2 diagonals and then the LAD is overall small going to the apex. No significant disease noted. LEFT CIRCUMFLEX: Moderate size vessel, with 40-50% ostial stenosis. Distally, it supplies one obtuse marginal, with no significant disease. RIGHT CORONARY ARTERY: Moderate to large sized vessel, with mild luminal irregularities. It supplies the PDA, as well as the posterolateral branch with no significant disease. LEFT VENTRICULAR END-DIASTOLIC PRESSURE: 14. IMPRESSION: 1. Atypical chest pain. 2. Abnormal stress test (intermediate risk). 3. Mild coronary artery disease by cardiac catheterization. RECOMMENDATIONS: 1. Ms. Humphries appears to have mild coronary artery disease and will be recommended continued medical therapy. 2. I spoke to her for greater than 3 minutes about tobacco cessation. 3. We will check a 2D echo and if no problems, she will be discharged home tomorrow. 4. Further recommendations will be made based on the hospital course. Thank you for allowing me to see Naty Humphries. If there are any questions, please do not hesitate to call. DO ANDER Herring/ESPERANZA , 07:53 PM , 09:43 PM
[2018-06-16] MEDS: Aspirin 325 MG Tablet PO SCH (08:25)
[2018-06-16] MEDS: Famotidine 20 MG Tablet PO SCH (08:25)
[2018-06-16] MEDS: Gabapentin 300 MG Capsule PO SCH (08:25)
[2018-06-16] MEDS: ARIPiprazole 5 MG Tablet PO SCH (08:25)
[2018-06-16] MEDS: lamoTRIgine 25 MG TABLET PO SCH (08:26)
[2018-06-16] MEDS: traZODone 50 MG Tablet PO SCH (08:26)
[2018-06-16] MEDS: Metoprolol Tartrate 25 MG Tablet PO SCH (08:26)
[2018-06-16] MEDS: Divalproex 250 MG DR Tablet PO SCH (08:27)
--- NOTE | 2018-06-16 10:49 | ECHRPT ---
Indication: CONCLUSIONS The left ventricular systolic function is normal with an estimated ejection fraction in the range of 55-60%. Wall thickness is measured at the upper limits of normal. [id number] mitral valve regurgitation. There is trace tricuspid valve regurgitation. BP: / HR: Rhythm: Sinus MEASUREMENTS (Male / Female) Normal Values Technical Quality:Fair 2D ECHO LV Diastolic Diameter PLAX 5.2 cm 4.2 - 5.9 / 3.9 - 5.3 cm LV Systolic Diameter PLAX 3.3 cm IVS Diastolic Thickness 1.0 cm 0.6 - 1.0 / 0.6 - 0.9 cm LVPW Diastolic Thickness 1.0 cm 0.6 - 1.0 / 0.6 - 0.9 cm LV Relative Wall Thickness 0.4 RV Internal Dim ED PLAX 2.0 cm LVOT Diameter 2.0 cm Aortic Root Diameter 2.4 cm LA Systolic Diameter LX 2.8 cm 3.0 - 4.0 / 2.7 - 3.8 cm M-MODE AV Cusp Separation MM 1.8 cm DOPPLER AV Peak Velocity 196.0 cm/s AV Peak Gradient 15.4 mmHg AV Mean Gradient 8.0 mmHg AV Velocity Time Integral 32.2 cm LVOT Peak Velocity 120.0 cm/s LVOT Peak Gradient 5.8 mmHg LVOT Velocity Time Integral 25.0 cm AV Area Cont Eq vti 2.4 cm AV Area Cont Eq pk 1.9 cm Mitral E Point Velocity 92.8 cm/s Mitral A Point Velocity 71.6 cm/s Mitral E to A Ratio 1.3 LV E' Lateral Velocity 8.6 cm/s Mitral E to LV E' Lateral Ratio 10.8 LV E' Septal Velocity 7.8 cm/s Mitral E to LV E' Septal Ratio 11.9 TR Peak Velocity 181.0 cm/s TR Peak Gradient 13.1 mmHg Right Atrial Pressure 10.0 mmHg Pulmonary Artery Systolic Pressu 23.1 mmHg Right Ventricular Systolic Press 23.1 mmHg PV Peak Velocity 79.7 cm/s PV Peak Gradient 2.5 mmHg FINDINGS LEFT VENTRICLE Normal left ventricular size. Wall thickness is measured at the upper limits of normal. The left ventricular systolic function is normal with an estimated ejection fraction in the range of 55-60%. RIGHT VENTRICLE Normal right ventricular size and systolic function. LEFT ATRIUM The left atrial size is normal. RIGHT ATRIUM The right atrial size is normal. ATRIAL SEPTUM No atrial level shunt is demonstrated by color flow Doppler interrogation. AORTA The aortic root and proximal ascending aorta are normal in size on limited imaging. MITRAL VALVE Grossly normal [id number]-[id number] mitral valve regurgitation. No mitral valve stenosis. AORTIC VALVE Trileaflet aortic valve. No aortic valve stenosis or regurgitation. TRICUSPID VALVE Grossly normal There is trace tricuspid valve regurgitation. The estimated pulmonary arterial pressure is 23.1 mmHg. PULMONARY VALVE No pulmonary valve regurgitation or stenosis. VESSELS The inferior vena cava is normal in size. PERICARDIUM No pericardial effusion. Micah Jones DO Edited by: general administrator general administrator (Electronically Signed) Final Date:15 June 2018 17:39 Amended: 16 June 2018 10:48
[2018-06-16 11:47] LABS: Baso % (Auto) 0.6 % (0.0-2.0); Eos # (Auto) 0.4 th/mm3 (0.0-0.4); Eos % (Auto) 4.4 % (0.0-4.0); Hematocrit 38.5 % (35.0-46.0); Hemoglobin 12.8 gm/dL (11.6-15.3); Lymph # (Auto) 2.4 th/mm3 (1.0-4.8); Lymph % (Auto) 29.7 % (9.0-44.0); Mean Corpuscular HGB Conc 33.4 % (32.0-36.0); Mean Corpuscular Hemoglobin 31.8 pg (27.0-34.0); Mean Corpuscular Volume 95.2 fL (80.0-100.0); Mean Platelet Volume 8.5 fL (7.0-11.0); Mono # (Auto) 0.8 th/mm3 (0.0-0.9); Mono % (Auto) 10.5 % (0.0-8.0); Neut # (Auto) 4.3 th/mm3 (1.8-7.7); Neut % (Auto) 54.8 % (16.0-70.0); Platelet Count 295 th/mm3 (150-450); Red Blood Count 4.05 mil/mm3 (4.00-5.30); Red Cell Distribution Width 13.6 % (11.6-17.2); White Blood Count 7.9 th/mm3 (4.0-11.0)
[2018-06-16 12:21] LABS: Alanine Aminotransferase 13 U/L (10-53); Alkaline Phosphatase 45 U/L (45-117); Anion Gap 8 meq/L (5-15); Aspartate Aminotransferase 10 U/L (15-37); Blood Urea Nitrogen 17 mg/dL (7-18); Calcium 8.6 mg/dL (8.5-10.1); Carbon Dioxide 26.6 meq/L (21.0-32.0); Chloride 106 meq/L (98-107); Glomerular Filtration Rate 87 mL/min (>89); Glucose,Random 87 mg/dL (74-106); Potassium 3.9 meq/L (3.5-5.1); Sodium 141 meq/L (136-145); Total Protein 6.1 g/dL (6.4-8.2)
[2018-06-16 12:23] LABS: Magnesium 1.9 mg/dL (1.5-2.5); Phosphorus 3.7 mg/dL (2.5-4.9)
--- NOTE | 2018-06-16 12:30 | P.PNIM ---
Subjective Interval history: This is a 48-year-old female with history of tobacco abuse, fibromyalgia, bipolar disorder, and schizoaffective disorder that presents to ED via private vehicle with her mother with a complaint of developing a chest discomfort and shortness of breath that began about 830 this morning while she was at work. She states the discomfort is in left upper chest. It is a burning achy discomfort. Worse level is 8 out of 10. The discomfort is still there. States it waxes and wanes. Found that taking a deep breath intensifies discomfort. Found nothing in particular to help the discomfort. Denies prior history of CAD. Cannot recall ever having a stress test or heart catheterization. Smokes about 1 pack of cigarettes a day for 30 years. Has an average 1 alcoholic beverage every couple weeks. States she has had no illicit drugs in several months. Denies family history of CAD. She has had a hysterectomy. HAD ABNORMAL STRESS TEST TRANSFERRED TO OUR SERVICE Follow-up visit chest pain, positive ischemia. Patient seen and examined today. Reports she continues to have chest pain, rated 7/10, achy, nonradiating , does not know what aggravates or relieves the pain. Denies SOB/ dyspnea. Denies palpitations, headaches, dizziness. Denies fevers, chills, n/v/d. Denies dysuria. HAD CARDIAC CATH WITH DR HENDRIX NO INTERVENTIONS-MEDICAL MANAGEMENT ONLY CLEARED FOR DISCHARGE TODAY LABS ARE STABLE NO CHEST PAIN DC TO HOME TODAY DW RN AND PT AND CM Physical Exam Vital signs: Vital Signs 06/15/18 14:32 06/15/18 20:00 06/16/18 00:00 Temperature 98.3 F 98.2 F Pulse Rate 69 61 Respiratory Rate 16 18 Blood Pressure 121/73 117/65 Pulse Oximetry 99 95 95 06/16/18 04:00 06/16/18 08:00 Temperature 98.0 F Pulse Rate 60 55 L Respiratory Rate 18 17 Blood Pressure 109/68 121/63 Pulse Oximetry 96 97 Intake & Output 06/15/18 06/16/18 06/16/18 18:59 06:59 18:59 Intake Total 20 / 20 720 / 720 Output Total 800 / 800 Balance 20 / 20 -80 / -80 Weight 89.6 kg 90.4 kg Intake: IV 20 / 20 Heparin/NS PF Inj 1,500 ML @ 0 20 / 20 mls/hr .ROUTE .STK-MED ONE Rx#: [id number] Oral 720 / 720 Output: Urine 800 / 800 Other: Date of Last Bowel Movement 06/12/18 # Bowel Movements 0 Weight On Admission 89.6 kg Narrative: GENERAL: This is a well-nourished, well-developed patient, in no apparent distress. SKIN: Warm and dry HEENT: Normocephalic. Pupils equal round and reactive. Nose without bleeding. Airway patent. NECK: Trachea midline. No JVD. Supple. CARDIOVASCULAR: Regular rate and rhythm without murmurs, gallops, or rubs. RESPIRATORY: Clear to auscultation. Breath sounds equal bilaterally. No wheezes , rales, or rhonchi. GASTROINTESTINAL: Abdomen soft, non-tender, nondistended. Bowel Sounds normoactive x4. MUSCULOSKELETAL: Extremities without clubbing, cyanosis, or edema. NEUROLOGICAL: Awake and alert. Oriented to time, place, person. No focal neuro deficit. Moves all extremities. Normal speech. Results - Labs CBC & Chem 7: 06/16/18 10:55 06/16/18 10:55 Laboratory Results - last 24 hr 06/16/18 06/16/18 06/16/18 10:55 10:55 10:55 WBC 7.9 RBC 4.05 Hgb 12.8 Hct 38.5 MCV 95.2 MCH 31.8 MCHC 33.4 RDW 13.6 Plt Count 295 MPV 8.5 Neut % (Auto) 54.8 Lymph % (Auto) 29.7 Th[place]morton % (Auto) 10.5 H Eos % (Auto) 4.4 H Baso % (Auto) 0.6 Neut # (Auto) 4.3 Lymph # (Auto) 2.4 [place]morton # (Auto) 0.8 Eos # (Auto) 0.4 Baso # (Auto) 0.0 WBC Differential . Differential Comment Auto diff final Sodium 141 Potassium 3.9 Chloride 106 Carbon Dioxide 26.6 Anion Gap 8 BUN 17 Creatinine 0.72 Estimated GFR 87 L Random Glucose 87 Calcium 8.6 Phosphorus 3.7 Magnesium 1.9 Total Bilirubin 0.3 AST 10 L ALT 13 Alkaline Phosphatase 45 Total Protein 6.1 L Albumin 3.0 L - Imaging Chest X-Ray 06/13/18 09:48 CONCLUSION: No acute cardiopulmonary disease Myocardial Perfusion Scan Nuc Med 06/14/18 08:00 CONCLUSION: 1. Normal wall motion and calculated ejection fraction. 2. Mild to moderate reversible wall defect involving the anterior wall which could indicate ischemia in the left anterior descending artery distribution. - Procedures 06/15/2018. PROCEDURE: Left heart catheterization, coronary angiogram, moderate sedation 30 minutes. PREPROCEDURAL DIAGNOSIS: Chest pain, abnormal stress test (intermediate risk). POSTPROCEDURE DIAGNOSIS: Mild coronary artery disease. MEDICATIONS: Versed 1 mg, fentanyl 50 mcg, nitroglycerine 200 mcg, heparin 3500 units. CONTRAST USED: 40 mL FLUOROSCOPY: 4.9 minutes. MODERATE SEDATION: 30 minutes. FRAILTY SCORE: 3. ESTIMATED BLOOD LOSS: 10 mL PROCEDURAL SUMMARY: Naty Humphries is a pleasant 48-year-old female who presented to [facility] Emergency Room due to atypical chest pain. She underwent stress testing and was found to have possible anterior ischemia and recommended cardiac catheterization as this was an intermediate risk stress test. Risks, benefits and alternatives were explained to her and she consented as such. She was brought to the lab and prepped in the usual sterile fashion. The right radial artery was accessed using a modified Seldinger technique and placement of a 5/6 Setswana slender sheath. This is easily aspirated and flushed. A JR4 was advanced over a J-wire to the ascending aorta and across the aortic valve for measurement of left ventricular pressure. This was pulled back across the aortic valve, showing no significant gradient of aortic stenosis. JR4 was used for selective angiography of the right coronary artery system. This was exchanged out for a JL3.5, but during this, she had significant spasm and I was unable to engage the left coronary artery and so JL3.5 was removed. Right femoral artery was accessed using a modified Seldinger technique and placement of a 5-Setswana sheath. This was easily aspirated and flushed. A JL 3.5 was used for selective angiography of the left coronary artery system. This was removed. Sheath was removed and pressure held for hemostasis. 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 FINDINGS: LEFT MAIN: Normal-sized vessel with adequate reflux. It bifurcates into an LAD and circumflex. LEFT ANTERIOR DESCENDING: Moderate to large size vessel, with 10-20% disease in the proximal to mid portion. Distally, it gives off 2 diagonals and then the LAD is overall small going to the apex. No significant disease noted. LEFT CIRCUMFLEX: Moderate size vessel, with 40-50% ostial stenosis. Distally, it supplies one obtuse marginal, with no significant disease. RIGHT CORONARY ARTERY: Moderate to large sized vessel, with mild luminal irregularities. It supplies the PDA, as well as the posterolateral branch with no significant disease. LEFT VENTRICULAR END-DIASTOLIC PRESSURE: 14. IMPRESSION: 1. Atypical chest pain. 2. Abnormal stress test (intermediate risk). 3. Mild coronary artery disease by cardiac catheterization. RECOMMENDATIONS: 1. Ms. Humphries appears to have mild coronary artery disease and will be recommended continued medical therapy. 2. I spoke to her for greater than 3 minutes about tobacco cessation. 3. We will check a 2D echo and if no problems, she will be discharged home tomorrow. 4. Further recommendations will be made based on the hospital course. Thank you for allowing me to see Naty Humphries. If there are any questions, please do not hesitate to call. Micah Hendrix, DO Assessment and Plan - Assessment (1) Chest pain Code(s): R07.9 - Chest pain, unspecified Status: Acute (2) Tobacco abuse Code(s): Z72.0 - Tobacco use Status: Acute - Plan 48-year-old female with history of tobacco abuse, fibromyalgia, bipolar disorder , and schizoaffective disorder that presents to ED via private vehicle with her mother with a complaint of developing a chest discomfort and shortness of breath Chest pain, acute -Serial cardiac enzymes and EKGs for ruling out purposes. -Myocardial perfusion scan showed normal wall motion and calculated ejection fraction at 63%. Mild to moderate reversible wall defect involving the anterior wall which could indicate ischemia in the left anterior descending artery distribution. -Cardiology consulted. Plan for cardiac cath 06-15 HAD CARDIAC CATH - NO INTERVENTIONS DC TO HOME TODAY Tobacco abuse -Patient counseled on importance of smoking cessation. Depression -Continue home medication DVT Prop SCDs Code Status: Full Code Discussed Condition With: Patient, nursing Discharge Planning: DC TO HOME TODAY Code Status: FULL CODE Discussed Condition With: CARDIOLOGY Discharge Planning: DC TO HOME TODAY (1) Chest pain Qualifiers: Chest pain type: unspecified Qualified Code(s): R07.9 - Chest pain, unspecified
--- NOTE | 2018-06-16 12:39 | P.DS ---
Date of admission: 06/13/18 11:10 Primary care physician: Gabby Issa Attending physician on discharge: Jim Will Anticipated date of discharge: 06/16/18 Brief History from admission: This is a 48-year-old female with history of tobacco abuse, fibromyalgia, bipolar disorder, and schizoaffective disorder that presents to ED via private vehicle with her mother with a complaint of developing a chest discomfort and shortness of breath that began about 830 this morning while she was at work. She states the discomfort is in left upper chest. It is a burning achy discomfort. Worse level is 8 out of 10. The discomfort is still there. States it waxes and wanes. Found that taking a deep breath intensifies discomfort. Found nothing in particular to help the discomfort. Denies prior history of CAD. Cannot recall ever having a stress test or heart catheterization. Smokes about 1 pack of cigarettes a day for 30 years. Has an average 1 alcoholic beverage every couple weeks. States she has had no illicit drugs in several months. Denies family history of CAD. She has had a hysterectomy. DS: Diagnosis - Discharge Diagnosis (1) Chest pain Status: Acute (2) Tobacco abuse Status: Acute DS: Medications - Discharge Medications Prescriptions: aspirin [Adult Low Dose Aspirin] 81 mg PO DAILY #30 tab atorvastatin [Lipitor] 20 mg PO DAILY #60 tab famotidine 20 mg PO BID #60 tab metoprolol tartrate 12.5 mg PO BID #60 tab nicotine [Nicoderm CQ] 1 patch TRANSDERMAL DAILY #30 ea DS: Summary Hospital Course: This is a 48-year-old female with history of tobacco abuse, fibromyalgia, bipolar disorder, and schizoaffective disorder that presents to ED via private vehicle with her mother with a complaint of developing a chest discomfort and shortness of breath that began about 830 this morning while she was at work. She states the discomfort is in left upper chest. It is a burning achy discomfort. Worse level is 8 out of 10. The discomfort is still there. States it waxes and wanes. Found that taking a deep breath intensifies discomfort. Found nothing in particular to help the discomfort. Denies prior history of CAD. Cannot recall ever having a stress test or heart catheterization. Smokes about 1 pack of cigarettes a day for 30 years. Has an average 1 alcoholic beverage every couple weeks. States she has had no illicit drugs in several months. Denies family history of CAD. She has had a hysterectomy. HAD ABNORMAL STRESS TEST TRANSFERRED TO OUR SERVICE Follow-up visit chest pain, positive ischemia. Patient seen and examined today. Reports she continues to have chest pain, rated 7/10, achy, nonradiating , does not know what aggravates or relieves the pain. Denies SOB/ dyspnea. Denies palpitations, headaches, dizziness. Denies fevers, chills, n/v/d. Denies dysuria. HAD CARDIAC CATH WITH DR HENDRIX NO INTERVENTIONS-MEDICAL MANAGEMENT ONLY CLEARED FOR DISCHARGE TODAY LABS ARE STABLE NO CHEST PAIN DC TO HOME TODAY DW RN AND PT AND CM AND CARDIOLOGY - Time Spent with Patient Total time spent providing and/or coordinating discharge services: - Quality: VTE Deep Vein Thrombosis/Pulmonary Embolism Present on Admission: Yes Exam Vital signs: Vital Signs 06/15/18 14:32 06/15/18 20:00 06/16/18 00:00 Temperature 98.3 F 98.2 F Pulse Rate 69 61 Respiratory Rate 16 18 Blood Pressure 121/73 117/65 Pulse Oximetry 99 95 95 06/16/18 04:00 06/16/18 08:00 Temperature 98.0 F Pulse Rate 60 55 L Respiratory Rate 18 17 Blood Pressure 109/68 121/63 Pulse Oximetry 96 97 Intake & Output 06/15/18 06/16/18 06/16/18 18:59 06:59 18:59 Intake Total 20 / 20 720 / 720 Output Total 800 / 800 Balance 20 / 20 -80 / -80 Weight 89.6 kg 90.4 kg Intake: IV 20 / 20 Heparin/NS PF Inj 1,500 ML @ 0 20 / 20 mls/hr .ROUTE [employer] Rx#: [id number] Oral 720 / 720 Output: Urine 800 / 800 Other: Date of Last Bowel Movement 06/12/18 # Bowel Movements 0 Weight On Admission 89.6 kg Narrative: GENERAL: This is a well-nourished, well-developed patient, in no apparent distress. SKIN: Warm and dry HEENT: Normocephalic. Pupils equal round and reactive. Nose without bleeding. Airway patent. NECK: Trachea midline. No JVD. Supple. CARDIOVASCULAR: Regular rate and rhythm without murmurs, gallops, or rubs. RESPIRATORY: Clear to auscultation. Breath sounds equal bilaterally. No wheezes , rales, or rhonchi. GASTROINTESTINAL: Abdomen soft, non-tender, nondistended. Bowel Sounds normoactive x4. MUSCULOSKELETAL: Extremities without clubbing, cyanosis, or edema. NEUROLOGICAL: Awake and alert. Oriented to time, place, person. No focal neuro deficit. Moves all extremities. Normal speech. Results Procedures completed during hospitalization: 06/15/2018. PROCEDURE: Left heart catheterization, coronary angiogram, moderate sedation 30 minutes. PREPROCEDURAL DIAGNOSIS: Chest pain, abnormal stress test (intermediate risk). POSTPROCEDURE DIAGNOSIS: Mild coronary artery disease. MEDICATIONS: Versed 1 mg, fentanyl 50 mcg, nitroglycerine 200 mcg, heparin 3500 units. CONTRAST USED: 40 mL FLUOROSCOPY: 4.9 minutes. MODERATE SEDATION: 30 minutes. FRAILTY SCORE: 3. ESTIMATED BLOOD LOSS: 10 mL PROCEDURAL SUMMARY: Naty Humphries is a pleasant 48-year-old female who presented to [facility] Emergency Room due to atypical chest pain. She underwent stress testing and was found to have possible anterior ischemia and recommended cardiac catheterization as this was an intermediate risk stress test. Risks, benefits and alternatives were explained to her and she consented as such. She was brought to the lab and prepped in the usual sterile fashion. The right radial artery was accessed using a modified Seldinger technique and placement of a 5/6 Egyptian slender sheath. This is easily aspirated and flushed. A JR4 was advanced over a J-wire to the ascending aorta and across the aortic valve for measurement of left ventricular pressure. This was pulled back across the aortic valve, showing no significant gradient of aortic stenosis. JR4 was used for selective angiography of the right coronary artery system. This was exchanged out for a JL3.5, but during this, she had significant spasm and I was unable to engage the left coronary artery and so JL3.5 was removed. Right femoral artery was accessed using a modified Seldinger technique and placement of a 5-Egyptian sheath. This was easily aspirated and flushed. A JL 3.5 was used for selective angiography of the left coronary artery system. This was removed. Sheath was removed and pressure held for hemostasis. 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 FINDINGS: LEFT MAIN: Normal-sized vessel with adequate reflux. It bifurcates into an LAD and circumflex. LEFT ANTERIOR DESCENDING: Moderate to large size vessel, with 10-20% disease in the proximal to mid portion. Distally, it gives off 2 diagonals and then the LAD is overall small going to the apex. No significant disease noted. LEFT CIRCUMFLEX: Moderate size vessel, with 40-50% ostial stenosis. Distally, it supplies one obtuse marginal, with no significant disease. RIGHT CORONARY ARTERY: Moderate to large sized vessel, with mild luminal irregularities. It supplies the PDA, as well as the posterolateral branch with no significant disease. LEFT VENTRICULAR END-DIASTOLIC PRESSURE: 14. IMPRESSION: 1. Atypical chest pain. 2. Abnormal stress test (intermediate risk). 3. Mild coronary artery disease by cardiac catheterization. RECOMMENDATIONS: 1. Ms. Humphries appears to have mild coronary artery disease and will be recommended continued medical therapy. 2. I spoke to her for greater than 3 minutes about tobacco cessation. 3. We will check a 2D echo and if no problems, she will be discharged home tomorrow. 4. Further recommendations will be made based on the hospital course. Thank you for allowing me to see Naty Humphries. If there are any questions, please do not hesitate to call. Micah Hendrix, DO Completed studies during hospitalization: Laboratory Results WBC 7.9 th/mm3 (4.0-11.0) 06/16/18 10:55 RBC 4.05 mil/mm3 (4.00-5.30) 06/16/18 10:55 Hgb 12.8 gm/dL (11.6-15.3) 06/16/18 10:55 Hct 38.5 % (35.0-46.0) 06/16/18 10:55 MCV 95.2 fL (80.0-100.0) 06/16/18 10:55 MCH 31.8 pg (27.0-34.0) 06/16/18 10:55 MCHC 33.4 % (32.0-36.0) 06/16/18 10:55 RDW 13.6 % (11.6-17.2) 06/16/18 10:55 Plt Count 295 th/mm3 (150-450) 06/16/18 10:55 MPV 8.5 fL (7.0-11.0) 06/16/18 10:55 Neut % (Auto) 54.8 % (16.0-70.0) 06/16/18 10:55 Lymph % (Auto) 29.7 % (9.0-44.0) 06/16/18 10:55 Daniels % (Auto) 10.5 % (0.0-8.0) H 06/16/18 10:55 Eos % (Auto) 4.4 % (0.0-4.0) H 06/16/18 10:55 Baso % (Auto) 0.6 % (0.0-2.0) 06/16/18 10:55 Neut # (Auto) 4.3 th/mm3 (1.8-7.7) 06/16/18 10:55 Lymph # (Auto) 2.4 th/mm3 (1.0-4.8) 06/16/18 10:55 Daniels # (Auto) 0.8 th/mm3 (0.0-0.9) 06/16/18 10:55 Eos # (Auto) 0.4 th/mm3 (0.0-0.4) 06/16/18 10:55 Baso # (Auto) 0.0 th/mm3 (0.0-0.2) 06/16/18 10:55 WBC Differential . 06/16/18 10:55 Differential Comment Auto diff final 06/16/18 10:55 PT 10.1 sec (9.8-11.6) 06/13/18 10:13 INR 1.0 Ratio 06/13/18 10:13 APTT 25.9 sec (24.3-30.1) 06/13/18 10:13 D-Dimer Quant (PE/DVT) 0.26 mg/L FEU (0.00-0.50) 06/13/18 10:13 Sodium 141 meq/L (136-145) 06/16/18 10:55 Potassium 3.9 meq/L (3.5-5.1) 06/16/18 10:55 Chloride 106 meq/L (98-107) 06/16/18 10:55 Carbon Dioxide 26.6 meq/L (21.0-32.0) 06/16/18 10:55 Anion Gap 8 meq/L (5-15) 06/16/18 10:55 BUN 17 mg/dL (7-18) 06/16/18 10:55 Creatinine 0.72 mg/dL (0.50-1.00) 06/16/18 10:55 Estimated GFR 87 mL/min (>89) L 06/16/18 10:55 Random Glucose 87 mg/dL (74-106) 06/16/18 10:55 Calcium 8.6 mg/dL (8.5-10.1) 06/16/18 10:55 Phosphorus 3.7 mg/dL (2.5-4.9) 06/16/18 10:55 Magnesium 1.9 mg/dL (1.5-2.5) 06/16/18 10:55 Total Bilirubin 0.3 mg/dL (0.2-1.0) 06/16/18 10:55 AST 10 U/L (15-37) L 06/16/18 10:55 ALT 13 U/L (10-53) 06/16/18 10:55 Alkaline Phosphatase 45 U/L (45-117) 06/16/18 10:55 Total Creatine Kinase 77 U/L (26-192) 06/13/18 15:45 Troponin I Less than 0.02 ng/mL (0.02-0.05) L 06/13/18 15:45 B-Natriuretic Peptide 27 pg/mL (0-100) 06/13/18 10:13 Total Protein 6.1 g/dL (6.4-8.2) L 06/16/18 10:55 Albumin 3.0 g/dL (3.4-5.0) L 06/16/18 10:55 Impressions Chest X-Ray 06/13/18 09:48 CONCLUSION: No acute cardiopulmonary disease Myocardial Perfusion Scan Nuc Med 06/14/18 08:00 CONCLUSION: 1. Normal wall motion and calculated ejection fraction. 2. Mild to moderate reversible wall defect involving the anterior wall which could indicate ischemia in the left anterior descending artery distribution. Labs on day of discharge: Labs from last 24 hours 06/16/18 06/16/18 06/16/18 10:55 10:55 10:55 WBC 7.9 RBC 4.05 Hgb 12.8 Hct 38.5 MCV 95.2 MCH 31.8 MCHC 33.4 RDW 13.6 Plt Count 295 MPV 8.5 Neut % (Auto) 54.8 Lymph % (Auto) 29.7 Daniels % (Auto) 10.5 H Eos % (Auto) 4.4 H Baso % (Auto) 0.6 Neut # (Auto) 4.3 Lymph # (Auto) 2.4 Daniels # (Auto) 0.8 Eos # (Auto) 0.4 Baso # (Auto) 0.0 WBC Differential . Differential Comment Auto diff final Sodium 141 Potassium 3.9 Chloride 106 Carbon Dioxide 26.6 Anion Gap 8 BUN 17 Creatinine 0.72 Estimated GFR 87 L Random Glucose 87 Calcium 8.6 Phosphorus 3.7 Magnesium 1.9 Total Bilirubin 0.3 AST 10 L ALT 13 Alkaline Phosphatase 45 Total Protein 6.1 L Albumin 3.0 L - Impressions ITS Impressions Chest X-Ray 06/13/18 09:48 CONCLUSION: No acute cardiopulmonary disease Myocardial Perfusion Scan Nuc Med 06/14/18 08:00 CONCLUSION: 1. Normal wall motion and calculated ejection fraction. 2. Mild to moderate reversible wall defect involving the anterior wall which could indicate ischemia in the left anterior descending artery distribution. Discharge Plan - Discharge Disposition Patient Disposition: 01 Discharge Home - Discharge Condition Condition: Stable - Discharge Order Discharge Orders: Discharge Order (Routine); Ordered 06/16/18 Ordered By: Jim Will - Discharge Details Anticipated Discharge Date: 06/16/18 Discharge Comment: DC TO HOME - Physicians Team Primary Care Provider: Gabby Issa Attending Provider: Jim Will Other Providers: [employer],Insurance ; Marky Amado MD
--- NOTE | 2018-06-16 21:58 | P.PNCA ---
Subjective Interval history: Patient was seen earlier today, late entry note for 06/16/18 as remote system was down No complaints Physical Exam Vital signs: Vital Signs 06/16/18 00:00 06/16/18 04:00 06/16/18 08:00 Temperature 98.2 F 98.0 F Pulse Rate 61 60 55 L Respiratory Rate 18 18 17 Blood Pressure 117/65 109/68 121/63 Pulse Oximetry 95 96 97 06/16/18 12:00 Temperature 98.0 F Pulse Rate 66 Respiratory Rate 20 Blood Pressure 107/59 L Pulse Oximetry 97 Intake & Output 06/16/18 06/16/18 06/17/18 06:59 18:59 06:59 Intake Total 720 / 720 Output Total 800 / 800 Balance -80 / -80 Weight 90.4 kg Intake: Oral 720 / 720 Output: Urine 800 / 800 Other: Date of Last Bowel Movement 06/12/18 # Bowel Movements 0 Narrative: GENERAL: This is a well-nourished, well-developed patient, in no apparent distress. SKIN: Warm and dry HEENT: Normocephalic. Pupils equal round and reactive. Nose without bleeding. Airway patent. NECK: Trachea midline. No JVD. Supple. CARDIOVASCULAR: Regular rate and rhythm without murmurs, gallops, or rubs. RESPIRATORY: Clear to auscultation. Breath sounds equal bilaterally. No wheezes , rales, or rhonchi. GASTROINTESTINAL: Abdomen soft, non-tender, nondistended. Bowel Sounds normoactive x4. MUSCULOSKELETAL: Extremities without clubbing, cyanosis, or edema. NEUROLOGICAL: Awake and alert. Oriented to time, place, person. No focal neuro deficit. Moves all extremities. Normal speech. Assessment and Plan - Assessment (1) Chest pain Code(s): R07.9 - Chest pain, unspecified Status: Acute (2) Tobacco abuse Code(s): Z72.0 - Tobacco use Status: Acute - Plan 1) Abnormal stress test Most likely false positive Cardiac cath showing mild CAD 2) EF normal on echo 3) Tobacco cessation 4) Cardiovascularly stable for discharge Discussed with Dr. Will (1) Chest pain Qualifiers: Chest pain type: unspecified Qualified Code(s): R07.9 - Chest pain, unspecified
== END 2018-06-16 14:01 | disposition home or self-care (01) ==
LOC: NEPC 09:28 → NEDA 09:28 → N04 09:28 → NEPGCP 12:50 → N04 06-15 14:51
PROVIDERS: ADMIT Hospitalist; ATTEND Hospitalist